=== PATIENT | female | born 2000 | race Caucasian/White ===

== ENCOUNTER 2018-03-28 19:11 | Emergency (ER) | payer BC, MEDICAID ==
[2018-03-28] MEDS ORDERED: Albuterol/Ipratropium 3.0-0.5 MG/3 ML Neb Soln NEB ONE (19:17)
--- NOTE | 2018-03-28 19:21 | EDM.PDOC ---
ED HPI GENERAL MEDICAL PROBLEM - General Stated Complaint: SHORTNESS OF BREATH, CHEST PAIN Time Seen by Provider: 03/28/18 19:11 Source of Information: Reports: Patient History Limitations: Reports: No Limitations - History of Present Illness INITIAL COMMENTS - FREE TEXT/NARRATIVE: HISTORY AND PHYSICAL: History of present illness: Patient is a 17-year-old female who presents to the emergency room with complaints of shortness of breath, cough and chest pain. She reports she has had a dry nonproductive cough over the past week. In the past 24 hours she has developed shortness of breath and chest pain which is increased when she takes in deep breathing or coughing. She is a daily pack per day smoker, 3 year history. Reports she has a history of IBS, Crohns disease, and ulcerative colitis. Denies any fever, chills, abdominal pain, nausea, vomiting, diarrhea or constipation. Review of systems: As per history of present illness and below otherwise all systems reviewed and negative. Past medical history: As per history of present illness and as reviewed below otherwise noncontributory. Surgical history: As per history of present illness and as reviewed below otherwise noncontributory. Social history: No reported history of drug or alcohol abuse. Family history: As per history of present illness and as reviewed below otherwise noncontributory. Physical exam: General: Malnourished appearing 17-year-old female. Alert and oriented. Nontoxic appearing and in no acute distress. HEENT: Atraumatic, normocephalic, pupils equal and reactive bilaterally, negative for conjunctival pallor or scleral icterus, mucous membranes moist, throat clear, neck supple, nontender, trachea midline. No drooling or trismus noted. No meningeal signs Lungs: Clear to auscultation, breath sounds equal bilaterally, chest nontender. Heart: S1S2, regular rate and rhythm without overt murmur Abdomen: Soft, nondistended- sunken, nontender. Negative for masses or hepatosplenomegaly. Negative for costovertebral tenderness. Pelvis: Stable nontender. Genitourinary: Deferred. Rectal: Deferred. Skin: Intact, warm, dry. No lesions or rashes noted. Extremities: Atraumatic, negative for cords or calf pain. Neurovascular unremarkable. Neuro: Awake, alert, oriented. Cranial nerves II through XII unremarkable. Cerebellum unremarkable. Motor and sensory unremarkable throughout. Exam nonfocal. Notes: Besides appearing greatly malnourished, her physical examination is within normal limits. Her labs reveal a Potassium of 2.8 and Sodium 134. There are no previous labs available to me, to compare with. Patient states she is aware of her low electrolyte level and states this is "normal". She does see a inspecting and testing lead hand in [facility] and her primary care provider Dr. Phelan at [facility]. She is due to see Dr. Phelan on 04/05/2018 and her inspecting and testing lead hand in June. And that her electrolytes were low, she does not seem concerned as she is aware that her electrolytes are routinely low due to her history of GI problems. She is agreeable to receiving IV fluids and oral potassium. She states that she will inform her primary care provider of her visit today and care her labs with him. Since she is a smoker and in no suppression therapy will give her a Z-George and Ventolin inhaler for her bronchitis. Diagnostics: CBC, CMP, Chest Xray, EKG Therapeutics: Duo Neb, potassium, IV fluid Impression: Bronchitis Hypokalemia Malnourished Plan: 1. Increase foods that are high in potassium. Inform Dr Chaudhari of your low potassium level and discuss best way to correct this. 2. Stop Smoking. 3. Take your medications as prescribed. 4. Follow up with Dr Chaudhari in the next 1-2 days. Return to the ED as needed and as discussed. Definitive disposition and diagnosis as appropriate pending reevaluation and review of above. Duration: Week(s): chest Pain Score (Numeric/FACES): 7 - Related Data Allergies Allergy/AdvReac Type Severity Reaction Status Date / Time No Known Allergies Allergy Verified 03/28/18 19:30 Home Meds: Home Meds DULoxetine [Cymbalta] 0 mg PO DAILY 03/28/18 [History] Vedolizumab [Entyvio] 0 mg INJECT ASDIRECTED 03/28/18 [History] ED ROS GENERAL - Review of Systems Review Of Systems: ROS reveals no pertinent complaints other than HPI. ED EXAM, GENERAL - Physical Exam Exam: See Below (See dictation) Course - Vital Signs Last Recorded V/S: Last Vital Signs Temp 98.1 F 03/28/18 19:11 Pulse 114 H 03/28/18 19:11 Resp 20 03/28/18 19:11 BP 96/63 03/28/18 19:11 Pulse Ox 98 03/28/18 19:11 - Orders/Labs/Meds Orders: Active Orders 24 hr Category Date Time Status EKG 12 Lead [EKG Documentation Completion] [RC] STAT Care 03/28/18 19:16 Active RT Aerosol Therapy [RC] ASDIRECTED Care 03/28/18 19:18 Active Chest 2V [CR] Stat Exams 03/28/18 19:17 Taken Sodium Chloride 0.9% [Normal Saline] 1,000 ml Med 03/28/18 20:29 Ordered IV STAT Medication Orders Sodium Chloride (Normal Saline) 1,000 mls @ 999 mls/hr IV STAT ONE Stop: 03/28/18 21:29 Last Admin: 03/28/18 20:49 Dose: 999 mls/hr Labs: Laboratory Tests 03/28/18 03/28/18 Range/Units 19:26 19:26 WBC 10.55 (4.0-11.0) K/uL RBC 4.64 (4.30-5.90) M/uL Hgb 11.5 L (12.0-16.0) g/dL Hct 36.4 (36.0-46.0) % MCV 78.4 L (80.0-98.0) fL MCH 24.8 L (27.0-32.0) pg MCHC 31.6 (31.0-37.0) g/dL RDW Std Deviation 48.0 (28.0-62.0) fl RDW Coeff of Alicia 17 H (11.0-15.0) % Plt Count 469 H (150-400) K/uL MPV 9.00 (7.40-12.00) fL Neut % (Auto) 59.1 (48.0-80.0) % Lymph % (Auto) 30.5 (16.0-40.0) % [place] % (Auto) 9.0 (0.0-15.0) % Eos % (Auto) 1.0 (0.0-7.0) % Baso % (Auto) 0.4 (0.0-1.5) % Neut # (Auto) 6.2 H (1.4-5.7) K/uL Lymph # (Auto) 3.2 H (0.6-2.4) K/uL [place] # (Auto) 1.0 H (0.0-0.8) K/uL Eos # (Auto) 0.1 (0.0-0.7) K/uL Baso # (Auto) 0.0 (0.0-0.1) K/uL Nucleated RBC % 0.0 /100WBC Nucleated RBCs # 0 K/uL Sodium 134 L (136-145) mmol/L Potassium 2.8 L (3.5-5.1) mmol/L Chloride 99 (98-107) mmol/L Carbon Dioxide 29.1 (21.0-32.0) mmol/L BUN 6 L (7.0-18.0) mg/dL Creatinine 0.7 (0.6-1.0) mg/dL Est Cr Clr Drug Dosing TNP Estimated GFR (MDRD) > 60.0 ml/min Glucose 99 (74-106) mg/dL Calcium 7.2 L (8.5-10.1) mg/dL Total Bilirubin 0.1 L (0.2-1.0) mg/dL AST 11 L (15-37) IU/L ALT 9 L (14-63) IU/L Alkaline Phosphatase 135 H (46-116) U/L Total Protein 4.8 L (6.4-8.2) g/dL Albumin 1.2 L (3.4-5.0) g/dL Globulin 3.6 H (2.0-3.5) g/dL Albumin/Globulin Ratio 0.3 L (1.3-2.8) Meds: Medications Generic Name Dose Route Start Last Admin Trade Name Freq PRN Reason Stop Dose Admin Sodium Chloride 1,000 mls @ 999 mls/hr 03/28/18 20:29 03/28/18 20:49 Normal Saline IV 03/28/18 21:29 999 mls/hr STAT ONE Administration Discontinued Medications Generic Name Dose Route Start Last Admin Trade Name Freq PRN Reason Stop Dose Admin Albuterol/Ipratropium 3 ml 03/28/18 19:17 03/28/18 19:27 Duoneb 3.0-0.5 Mg/3 Ml NEB 03/28/18 19:18 3 ml ONETIME ONE Administration Ketorolac Tromethamine 30 mg 03/28/18 20:32 03/28/18 20:49 Toradol IVPUSH 03/28/18 20:33 30 mg ONETIME ONE Administration Potassium Chloride 20 meq 03/28/18 20:29 03/28/18 20:49 Klor-Con M20 PO 03/28/18 20:30 20 meq ONETIME ONE Administration Departure - Departure Time of Disposition: 20:52 Disposition: Home, Self-Care 01 Clinical Impression: Bronchitis, Hypokalemia Malnourished Qualifiers: Malnutrition type: unspecified type Qualified Code(s): E46 - Unspecified protein-calorie malnutrition - Discharge Information Instructions: Hypokalemia, Acute Bronchitis, Adult, [id number] Referrals: Albert Phelan MD [Primary Care Provider] - Additional Instructions: The following information is given to patients seen in the emergency department who are being discharged to home. This information is to outline your options for follow-up care. We provide all patients seen in our emergency department with a follow-up referral. The need for follow-up, as well as the timing and circumstances, are variable depending upon the specifics of your emergency department visit. If you don't have a primary care physician on staff, we will provide you with a referral. We always advise you to contact your personal physician following an emergency department visit to inform them of the circumstance of the visit and for follow-up with them and/or the need for any referrals to a consulting specialist. The emergency department will also refer you to a specialist when appropriate. This referral assures that you have the opportunity for follow-up care with a specialist. All of these measure are taken in an effort to provide you with optimal care, which includes your follow-up. Under all circumstances we always encourage you to contact your private physician who remains a resource for coordinating your care. When calling for follow-up care, please make the office aware that this follow-up is from your recent emergency room visit. If for any reason you are refused follow-up, please contact the [facility] Emergency Department at and asked to speak to the emergency department charge nurse. [facility] [address] [place] [id number] 1. Increase foods that are high in potassium. Inform Dr Chaudhari of your low potassium level and discuss best way to correct this. 2. Stop Smoking. 3. Take your medications as prescribed. 4. Follow up with Dr Chaudhari in the next 1-2 days. Return to the ED as needed and as discussed. - My Orders Last 24 Hours: My Active Orders 03/28/18 19:16 EKG 12 Lead [EKG Documentation Completion] [RC] STAT 03/28/18 19:17 Chest 2V [CR] Stat 03/28/18 19:18 RT Aerosol Therapy [RC] ASDIRECTED 03/28/18 20:29 Sodium Chloride 0.9% [Normal Saline] 1,000 ml IV STAT - Assessment/Plan Last 24 Hours: My Active Orders 03/28/18 19:16 EKG 12 Lead [EKG Documentation Completion] [RC] STAT 03/28/18 19:17 Chest 2V [CR] Stat 03/28/18 19:18 RT Aerosol Therapy [RC] ASDIRECTED 03/28/18 20:29 Sodium Chloride 0.9% [Normal Saline] 1,000 ml IV STAT
[2018-03-28 20:01] LABS: CHLORIDE,CL 99 mmol/L (98-107); SODIUM,NA 134 mmol/L (136-145)
[2018-03-28] MEDS ORDERED: Sodium Chloride 0.9% 1,000 ML IV ONE (20:29)
[2018-03-28] MEDS ORDERED: Potassium Chloride 20 MEQ Tab.ER PO ONE (20:29)
[2018-03-28] MEDS ORDERED: Ketorolac 30 MG/ML SDV IVPUSH ONE (20:32)
--- NOTE | 2018-03-29 15:23 | CR ---
EXAM DATE: 03/28/18 PATIENT'S AGE: 17 Patient: ALLYSON SOLANO Facility: [place], [place] Site . Site : 2000 Study: XRay Chest [id number]/11/2018 7:49:22 PM Ordering Physician: Doctor Polo Final Report: INDICATION: Chest pain, shortness of breath. TECHNIQUE: Chest radiograph 2 views COMPARISON: None FINDINGS: Cardiovascular and mediastinum: The heart silhouette is normal in size and morphology. The mediastinum is normal in appearance. Lungs and pleural spaces: Both lungs are unremarkable in appearance. No sign of pleural effusion seen. No pneumothorax is identified. Bones and soft tissues: No significant findings. Cholecystectomy surgical clips are noted in the right upper abdomen. IMPRESSION: 1. No acute cardiopulmonary disease is seen. Dictated by Anil Salvador MD @ 03/28/2018 7:55:54 PM Dictated by: Anil Salvador MD @ 03/28/2018 19:56:04 (Electronic Signature) Report Signed by Proxy. KANWAL
== END 2018-03-28 21:47 | disposition home or self-care (01) ==
LOC: MW.ED 19:11
DX: J40 Bronchitis, not specified as acute or chronic (principal); E87.6 Hypokalemia; E46 Unspecified protein-calorie malnutrition; F17.210 Nicotine dependence, cigarettes, uncomplicated; Z71.6 Tobacco abuse counseling
CPT/HCPCS: 36415; 71046; 80053; 85025; 93005; 94640; 96361; 96374; 99285; A9270; J1885; J7040; 99284

== ENCOUNTER 2018-05-02 23:22 | Emergency (ER) | payer MEDICAID ==
--- NOTE | 2018-05-02 23:39 | EDM.PDOC ---
ED HPI GENERAL MEDICAL PROBLEM - General Chief Complaint: Lower Extremity Injury/Pain Stated Complaint: LF FOOT IS SWOLLEN Time Seen by Provider: 05/02/18 23:39 Source of Information: Reports: Patient - History of Present Illness INITIAL COMMENTS - FREE TEXT/NARRATIVE: HISTORY AND PHYSICAL: History of present illness: [Female presents with left foot swelling and pain, followed by her primary care MRI has been performed through our facility if for infection fracture or any acute process the edema is noted She has ultrasound scheduled to follow-up elevated liver function is a history of Crohn's disease and has not been keeping food down she is quite thin and I suspect her pedal edema may be due to protein deficiency and liver disease which is followed by her primary care Will check for gout otherwise all I can offer his pain control from the ER ] Review of systems: As per history of present illness and below otherwise all systems reviewed and negative. Past medical history: As per history of present illness and as reviewed below otherwise noncontributory. Surgical history: As per history of present illness and as reviewed below otherwise noncontributory. Social history: No reported history of drug or alcohol abuse. Family history: As per history of present illness and as reviewed below otherwise noncontributory. Physical exam: HEENT: Atraumatic, normocephalic, pupils reactive, negative for conjunctival pallor or scleral icterus, mucous membranes moist, throat clear, neck supple, nontender, trachea midline. Lungs: Clear to auscultation, breath sounds equal bilaterally, chest nontender. Heart: S1S2, regular, negative for clicks, rubs, or JVD. Abdomen: Soft, nondistended, nontender. Negative for masses or hepatosplenomegaly. Negative for costovertebral tenderness. Pelvis: Stable nontender. Genitourinary: Deferred. Rectal: Deferred. Extremities: Atraumatic, negative for cords or calf pain. Neurovascular unremarkable. Neuro: Awake, alert, oriented. Cranial nerves II through XII unremarkable. Cerebellum unremarkable. Motor and sensory unremarkable throughout. Exam nonfocal. Diagnostics: [cBC uric acid ] MRI on file within the last couple of weeks Therapeutics: [MS Contin 15 mg by mouth every 8 #20 no refill one by mouth now With history of elevated liver function in Crohn's we will have patient follow with primary care Dr. Phelan for continued management and workup ] Impression: [Left foot pain and edema] Elevated liver function by history chronic history of baseline Definitive disposition and diagnosis as appropriate pending reevaluation and review of above. L foot Pain Score (Numeric/FACES): 9 - Related Data Allergies Allergy/AdvReac Type Severity Reaction Status Date / Time No Known Allergies Allergy Verified 05/02/18 23:34 Home Meds: Home Meds DULoxetine [Cymbalta] 30 mg PO DAILY 03/28/18 [History] Vedolizumab [Entyvio] 0 mg INJECT ASDIRECTED 03/28/18 [History] Past Medical History Gastrointestinal History: Reports: Other (See Below) Other Gastrointestinal History: crohn's ds Psychiatric History: Reports: Anxiety, Depression Social & Family History - Family History Family Medical History: Noncontributory Review of Systems - Review of Systems Review Of Systems: See Below ED EXAM, GENERAL - Physical Exam Exam: See Below Course - Vital Signs Last Recorded V/S: Last Vital Signs Temp 97.9 F 05/02/18 23:31 Pulse 99 05/02/18 23:31 Resp 12 05/02/18 23:31 BP 101/68 05/02/18 23:31 Pulse Ox 97 05/02/18 23:31 - Orders/Labs/Meds Labs: Laboratory Tests 05/02/18 05/02/18 Range/Units 23:48 23:48 WBC 8.60 (4.0-11.0) K/uL RBC 4.46 (4.30-5.90) M/uL Hgb 11.3 L (12.0-16.0) g/dL Hct 35.6 L (36.0-46.0) % MCV 79.8 L (80.0-98.0) fL MCH 25.3 L (27.0-32.0) pg MCHC 31.7 (31.0-37.0) g/dL RDW Std Deviation 54.3 (28.0-62.0) fl RDW Coeff of Alicia 19 H (11.0-15.0) % Plt Count 416 H (150-400) K/uL MPV 8.70 (7.40-12.00) fL Neut % (Auto) 52.8 (48.0-80.0) % Lymph % (Auto) 38.6 (16.0-40.0) % [place] % (Auto) 6.9 (0.0-15.0) % Eos % (Auto) 0.8 (0.0-7.0) % Baso % (Auto) 0.9 (0.0-1.5) % Neut # (Auto) 4.5 (1.4-5.7) K/uL Lymph # (Auto) 3.3 H (0.6-2.4) K/uL [place] # (Auto) 0.6 (0.0-0.8) K/uL Eos # (Auto) 0.1 (0.0-0.7) K/uL Baso # (Auto) 0.1 (0.0-0.1) K/uL Nucleated RBC % 0.0 /100WBC Nucleated RBCs # 0 K/uL Uric Acid 2.5 L (2.6-7.2) mg/dL Meds: Medications Discontinued Medications Generic Name Dose Route Start Last Admin Trade Name Freq PRN Reason Stop Dose Admin Morphine Sulfate 15 mg 05/02/18 23:53 05/03/18 00:02 Ms Contin PO 05/02/18 23:54 15 mg ONETIME ONE Administration Departure - Departure Time of Disposition: 00:36 Disposition: Home, Self-Care 01 Condition: Good Clinical Impression: Pedal edema - Discharge Information Referrals: Albert Phelan MD [Primary Care Provider] - Forms: ED Department Discharge Additional Instructions: The following information is given to patients seen in the emergency department who are being discharged to home. This information is to outline your options for follow-up care. We provide all patients seen in our emergency department with a follow-up referral. The need for follow-up, as well as the timing and circumstances, are variable depending upon the specifics of your emergency department visit. If you don't have a primary care physician on staff, we will provide you with a referral. We always advise you to contact your personal physician following an emergency department visit to inform them of the circumstance of the visit and for follow-up with them and/or the need for any referrals to a consulting specialist. The emergency department will also refer you to a specialist when appropriate. This referral assures that you have the opportunity for follow-up care with a specialist. All of these measure are taken in an effort to provide you with optimal care, which includes your follow-up. Under all circumstances we always encourage you to contact your private physician who remains a resource for coordinating your care. When calling for follow-up care, please make the office aware that this follow-up is from your recent emergency room visit. If for any reason you are refused follow-up, please contact the [facility] emergency department at and asked to speak to the emergency department charge nurse.
[2018-05-03] MEDS: Morphine 15 MG Tab.ER PO ONE (00:02)
== END 2018-05-03 00:49 | disposition home or self-care (01) ==
LOC: MW.ED 23:22
DX: R60.0 Localized edema (principal); M79.672 Pain in left foot; R79.89 Other specified abnormal findings of blood chemistry
CPT/HCPCS: 36415; 84550; 85025; 99283; A9270-GY

== ENCOUNTER 2018-05-30 16:02 | Observation (INO) | payer MEDICAID ==
[2018-05-30] MEDS ORDERED: Sodium Chloride 0.9% 2.5 ML Syringe FLUSH PRN (16:04)
[2018-05-30] MEDS ORDERED: Sodium Chloride 0.9% 10 ML Syringe FLUSH PRN (16:04)
[2018-05-30] MEDS ORDERED: Sodium Chloride 0.9% 1,000 ML IV ONE (16:12)
--- NOTE | 2018-05-30 16:12 | EDM.PDOC ---
ED HPI GENERAL MEDICAL PROBLEM - General Chief Complaint: Neuro Symptoms/Deficits Stated Complaint: PT HAS NUMBNESS Time Seen by Provider: 05/30/18 16:03 Source of Information: Reports: Patient History Limitations: Reports: No Limitations - History of Present Illness INITIAL COMMENTS - FREE TEXT/NARRATIVE: History of present illness: []Patient has history of Crohn's disease has been on several medicines by Dr. Phelan that are no longer working. Patient weighed 238 pounds ear half ago and now weighs 80 pounds. Today she started having tingling all over her body and so weak she could not get up. He drinks fluids and keep some down a lot but she has trouble eating. She denies any fevers, chills or abdominal pain. Review of systems: As per history of present illness and below otherwise all systems reviewed and negative. Past medical history: As per history of present illness and as reviewed below otherwise noncontributory. Surgical history: As per history of present illness and as reviewed below otherwise noncontributory. Social history: No reported history of drug or alcohol abuse. Family history: As per history of present illness and as reviewed below otherwise noncontributory. Physical exam: General: Well developed, well nourished in NAD HEENT: Atraumatic, normocephalic, pupils reactive, negative for conjunctival pallor or scleral icterus, mucous membranes moist, throat clear, neck supple, nontender, trachea midline. Lungs: Clear to auscultation, breath sounds equal bilaterally, chest nontender. Heart: S1S2, regular, negative for clicks, rubs, or JVD. Abdomen: Soft, nondistended, nontender. Negative for masses or hepatosplenomegaly. Negative for costovertebral tenderness. Pelvis: Stable nontender. Genitourinary: Deferred. Rectal: Deferred. Extremities: Atraumatic, negative for cords or calf pain. Neurovascular unremarkable. Neuro: Awake, alert, oriented. Cranial nerves II through XII unremarkable. Cerebellum unremarkable. Motor and sensory unremarkable throughout. Exam nonfocal. Skin:warm and dry Diagnostics: CBC, chemistry, UA, , magnesium, phosphorus Therapeutics: IV fluids, Zofran, banana bag with potassium ED Course: Unremarkable Impression: Failure to thrive, dehydration Prescriptions: Plan: Admit for correction of electrolytes and IV hydration. Definitive disposition and diagnosis as appropriate pending reevaluation and review of above. - Related Data Allergies Allergy/AdvReac Type Severity Reaction Status Date / Time No Known Allergies Allergy Verified 05/30/18 16:05 Home Meds: Home Meds Vedolizumab [Entyvio] 300 mg INJECT ASDIRECTED 03/28/18 [History] Morphine 15 mg PO TID 05/30/18 [History] Past Medical History Gastrointestinal History: Reports: Other (See Below) Other Gastrointestinal History: crohn's ds Psychiatric History: Reports: Anxiety, Depression - Infectious Disease History Infectious Disease History: Reports: Chicken Pox - Past Surgical History GI Surgical History: Reports: Cholecystectomy Social & Family History - Family History Family Medical History: Noncontributory - Caffeine Use Caffeine Use: Reports: Soda ED ROS GENERAL - Review of Systems Review Of Systems: ROS reveals no pertinent complaints other than HPI. ED EXAM, GENERAL - Physical Exam Exam: See Below (See history of present illness) Course - Vital Signs Last Recorded V/S: Last Vital Signs Temp 96.8 F 05/30/18 16:08 Pulse 101 H 05/30/18 16:08 Resp 22 H 05/30/18 16:08 BP 112/54 L 05/30/18 16:08 Pulse Ox 100 05/30/18 16:08 - Orders/Labs/Meds Orders: Active Orders 24 hr Category Date Time Status EKG Documentation Completion [RC] STAT Care 05/30/18 16:13 Active HCG QUALITATIVE,URINE [URCHEM] Stat Lab 05/30/18 16:55 Ordered UA W/MICROSCOPIC [URIN] Stat Lab 05/30/18 16:13 Ordered MVI, Adult with Vitamin K [Infuvite Adult] 10 ml Med 05/30/18 16:53 Active Thiamine [Vitamin B-1] 100 mg Folic Acid 1 mg Potassium Chloride 40 meq Sodium Chloride 0.9% [Normal Saline] 1,000 ml IV ONETIME Sodium Chloride 0.9% [Saline Flush] Med 05/30/18 16:04 Active 10 ml FLUSH ASDIRECTED PRN Sodium Chloride 0.9% [Saline Flush] Med 05/30/18 16:04 Active 2.5 ml FLUSH ASDIRECTED PRN Saline Lock Insert [OM.PC] Stat Oth 05/30/18 16:03 Ordered Medication Orders Multivitamins/Minerals 10 ml/Thiamine HCl 100 mg/ Folic Acid 1 mg/ Potassium Chloride 40 meq/ Sodium Chloride 1,031.2 mls @ 250 mls/hr IV ONETIME ONE Stop: 05/30/18 21:00 Sodium Chloride (Saline Flush) 10 ml FLUSH ASDIRECTED PRN PRN Reason: Keep Vein Open Last Admin: 05/30/18 16:32 Dose: 10 ml Sodium Chloride (Saline Flush) 2.5 ml FLUSH ASDIRECTED PRN PRN Reason: Keep Vein Open Last Admin: 05/30/18 16:32 Dose: 2.5 ml Labs: Laboratory Tests 05/30/18 05/30/18 Range/Units 16:12 16:12 WBC 6.23 (4.0-11.0) K/uL RBC 4.93 (4.30-5.90) M/uL Hgb 12.8 (12.0-16.0) g/dL Hct 38.0 (36.0-46.0) % MCV 77.1 L (80.0-98.0) fL MCH 26.0 L (27.0-32.0) pg MCHC 33.7 (31.0-37.0) g/dL RDW Std Deviation 51.0 (28.0-62.0) fl RDW Coeff of Alicia 18 H (11.0-15.0) % Plt Count 305 (150-400) K/uL MPV 9.90 (7.40-12.00) fL Neut % (Auto) 55.9 (48.0-80.0) % Lymph % (Auto) 36.4 (16.0-40.0) % [place] % (Auto) 6.9 (0.0-15.0) % Eos % (Auto) 0.3 (0.0-7.0) % Baso % (Auto) 0.5 (0.0-1.5) % Neut # (Auto) 3.5 (1.4-5.7) K/uL Lymph # (Auto) 2.3 (0.6-2.4) K/uL [place] # (Auto) 0.4 (0.0-0.8) K/uL Eos # (Auto) 0.0 (0.0-0.7) K/uL Baso # (Auto) 0.0 (0.0-0.1) K/uL Nucleated RBC % 0.0 /100WBC Nucleated RBCs # 0 K/uL Sodium 130 L (136-145) mmol/L Potassium 2.8 L (3.5-5.1) mmol/L Chloride 97 L (98-107) mmol/L Carbon Dioxide 27.2 (21.0-32.0) mmol/L BUN 3 L (7.0-18.0) mg/dL Creatinine 0.5 L (0.6-1.0) mg/dL Est Cr Clr Drug Dosing TNP Estimated GFR (MDRD) > 60.0 ml/min Glucose 85 (74-106) mg/dL Calcium 6.7 L (8.5-10.1) mg/dL Phosphorus 2.0 L (2.6-4.7) mg/dL Magnesium 1.6 L (1.8-2.4) mg/dL Total Bilirubin 0.3 (0.2-1.0) mg/dL AST 26 (15-37) IU/L ALT 31 (14-63) IU/L Alkaline Phosphatase 112 (46-116) U/L Total Protein 3.3 L (6.4-8.2) g/dL Albumin 0.7 L (3.4-5.0) g/dL Globulin 2.6 (2.0-3.5) g/dL Albumin/Globulin Ratio 0.3 L (1.3-2.8) Meds: Medications Generic Name Dose Route Start Last Admin Trade Name Freq PRN Reason Stop Dose Admin Multivitamins/Minerals 10 ml/ 1,031.2 mls @ 250 mls/hr 05/30/18 16:53 Thiamine HCl 100 mg/ Folic IV 05/30/18 21:00 Acid 1 mg/ Potassium Chloride ONETIME ONE 40 meq/ Sodium Chloride Sodium Chloride 10 ml 05/30/18 16:04 05/30/18 16:32 Saline Flush FLUSH 10 ml ASDIRECTED PRN Administration Keep Vein Open Sodium Chloride 2.5 ml 05/30/18 16:04 05/30/18 16:32 Saline Flush FLUSH 2.5 ml ASDIRECTED PRN Administration Keep Vein Open Discontinued Medications Generic Name Dose Route Start Last Admin Trade Name Freq PRN Reason Stop Dose Admin Sodium Chloride 1,000 mls @ 999 mls/hr 05/30/18 16:12 05/30/18 16:32 Normal Saline IV 05/30/18 17:12 999 mls/hr .Bolus ONE Administration Ondansetron HCl 4 mg 05/30/18 16:53 Zofran IVPUSH 05/30/18 16:54 ONETIME ONE Departure - Departure Time of Disposition: 17:17 Disposition: Admitted As Inpatient 64 Condition: Poor Clinical Impression: Failure to thrive Qualifiers: Failure to thrive age range: in adult Qualified Code(s): R62.7 - Adult failure to thrive - Discharge Information *PRESCRIPTION DRUG MONITORING PROGRAM REVIEWED*: No *COPY OF PRESCRIPTION DRUG MONITORING REPORT IN PATIENT RUPAL: No Forms: ED Department Discharge - My Orders Last 24 Hours: My Active Orders 05/30/18 16:03 Saline Lock Insert [OM.PC] Stat 05/30/18 16:04 Sodium Chloride 0.9% [Saline Flush] 10 ml FLUSH ASDIRECTED PRN Sodium Chloride 0.9% [Saline Flush] 2.5 ml FLUSH ASDIRECTED PRN 05/30/18 16:13 EKG Documentation Completion [RC] STAT UA W/MICROSCOPIC [URIN] Stat 05/30/18 16:53 MVI, Adult with Vitamin K [Infuvite Adult] 10 ml Thiamine [Vitamin B-1] 100 mg Folic Acid 1 mg Potassium Chloride 40 meq Sodium Chloride 0.9% [Normal Saline ] 1,000 ml IV ONETIME 05/30/18 16:55 HCG QUALITATIVE,URINE [URCHEM] Stat - Assessment/Plan Last 24 Hours: My Active Orders 05/30/18 16:03 Saline Lock Insert [OM.PC] Stat 05/30/18 16:04 Sodium Chloride 0.9% [Saline Flush] 10 ml FLUSH ASDIRECTED PRN Sodium Chloride 0.9% [Saline Flush] 2.5 ml FLUSH ASDIRECTED PRN 05/30/18 16:13 EKG Documentation Completion [RC] STAT UA W/MICROSCOPIC [URIN] Stat 05/30/18 16:53 MVI, Adult with Vitamin K [Infuvite Adult] 10 ml Thiamine [Vitamin B-1] 100 mg Folic Acid 1 mg Potassium Chloride 40 meq Sodium Chloride 0.9% [Normal Saline ] 1,000 ml IV ONETIME 05/30/18 16:55 HCG QUALITATIVE,URINE [URCHEM] Stat
[2018-05-30 16:48] LABS: CHLORIDE,CL 97 mmol/L (98-107); SODIUM,NA 130 mmol/L (136-145)
[2018-05-30] MEDS ORDERED: MVI, Adult with Vitamin K 10 ML, Thiamine 100 MG, Folic Acid 1 MG, Potassium Chloride 4... IV ONE ×5 (16:53)
[2018-05-30] MEDS ORDERED: Ondansetron 4 MG/2 ML SDV IVPUSH ONE (16:53)
[2018-05-30] MEDS: Enoxaparin 40 MG/0.4 ML Syringe SUBCUT SCH (17:55)
--- NOTE | 2018-05-30 18:01 | PCM.HP ---
H&P History of Present Illness - General Date of Service: 05/30/18 Admit Problem/Dx: Admission Diagnosis/Problem Admission Diagnosis/Problem Failure to thrive - History of Present Illness Initial Comments - Free Text/Narative: The patient is a 18-year-old female with past medical history of Crohn's disease who presented to the ER today with difficulty breathing and her whole body feeling numb. This started around 11:00 this morning. When I saw her in the ER, she said she was more relaxed and she was no longer having that numb feeling. She thinks when she moves it comes back. She also reports retaining fluids for the past month. She saw her PCP, Dr. Phelan last week who did an ultrasound of her heart and found fluid around her heart and scheduled her for an outpatient echo. She also follows with a Dr. Gaitan in [place] for her Crohn's disease. She supposed to get an injection of Entyvio every 8 weeks, but she missed her May injection beacuse she wasn't feeling well. She also reports that she's lost about 160 pounds in the last year and a half. Today, she endorses diarrhea but states that is her baseline. She has not had a very good appetite but denies any nausea, vomiting or abdominal pain. She denies any major changes in her life, stress, changes in diet or activity. in the ER, they did basic lab work, CBC, CMP, mag, phos and UA. They gave her a bolus of normal saline and a banana bag with 40 mEq of potassium. They also got an EKG that shows sinus rhythm with low voltage - Related Data Allergies/Adverse Reactions: Allergies Allergy/AdvReac Type Severity Reaction Status Date / Time No Known Allergies Allergy Verified 05/30/18 16:05 Home Medications: Home Meds Vedolizumab [Entyvio] 300 mg INJECT ASDIRECTED 03/28/18 [History] Morphine 15 mg PO TID 05/30/18 [History] Past Medical History HEENT History: Reports: None Cardiovascular History: Reports: None Respiratory History: Reports: None Gastrointestinal History: Reports: Other (See Below) Other Gastrointestinal History: crohn's ds Genitourinary History: Reports: None STONEWORKER History: Reports: None Musculoskeletal History: Reports: None Neurological History: Reports: None Psychiatric History: Reports: Anxiety, Depression Endocrine/Metabolic History: Reports: None Oncologic (Cancer) History: Reports: None Dermatologic History: Reports: None - Infectious Disease History Infectious Disease History: Reports: Chicken Pox - Past Surgical History GI Surgical History: Reports: Cholecystectomy Social & Family History - Family History Family Medical History: Noncontributory - Tobacco Use Smoking Status *Q: Current Every Day Smoker (1/2 pack day) - Caffeine Use Caffeine Use: Reports: Soda - Alcohol Use Alcohol Use History: No - Recreational Drug Use Recreational Drug Use: No H&P Review of Systems - Review of Systems: Review Of Systems: See Below General: Reports: Weakness, Fatigue, Weight Loss. Denies: Fever, Chills HEENT: Reports: No Symptoms Pulmonary: Reports: Shortness of Breath Cardiovascular: Reports: No Symptoms Gastrointestinal: Reports: Diarrhea, Decreased Appetite. Denies: Abdominal Pain , Black Stool, Bloody Stool, Constipation, Nausea, Vomiting Genitourinary: Reports: No Symptoms Musculoskeletal: Reports: No Symptoms Skin: Reports: No Symptoms Psychiatric: Reports: No Symptoms Neurological: Reports: Paresthesia Hematologic/Lymphatic: Reports: No Symptoms Immunologic: Reports: No Symptoms Exam - Exam Exam: See Below - Vital Signs Vital Signs: Last Vital Signs Temp 96.8 F 05/30/18 16:08 Pulse 84 05/30/18 17:20 Resp 16 05/30/18 17:20 BP 98/64 05/30/18 17:20 Pulse Ox 100 05/30/18 17:20 Weight: 45.359 kg - Exam General: Alert, Oriented, Cooperative, Other (very thin) HEENT: Conjunctiva Clear, EOMI, Mucosa Moist & [place], Posterior Pharynx Clear, Pupils Equal, Pupils Reactive, Other (edema eyelinds bilateral) Neck: Supple Lungs: Clear to Auscultation, Normal Respiratory Effort Cardiovascular: Regular Rate, Regular Rhythm GI/Abdominal Exam: Normal Bowel Sounds, Soft, Non-Tender, No Distention Extremities: Pedal Edema (+2 up to knees bilaterally) Skin: Warm, Dry, Intact Neurological: Cranial Nerves Intact Neuro Extensive - Mental Status: Alert, Oriented x3 Psychiatric: Alert, Normal Affect, Normal Mood - Patient Data Lab Results Last 24 hrs: Laboratory Results - last 24 hr 05/30/18 05/30/18 Range/Units 16:12 16:12 WBC 6.23 (4.0-11.0) K/uL RBC 4.93 (4.30-5.90) M/uL Hgb 12.8 (12.0-16.0) g/dL Hct 38.0 (36.0-46.0) % MCV 77.1 L (80.0-98.0) fL MCH 26.0 L (27.0-32.0) pg MCHC 33.7 (31.0-37.0) g/dL RDW Std Deviation 51.0 (28.0-62.0) fl RDW Coeff of Alicia 18 H (11.0-15.0) % Plt Count 305 (150-400) K/uL MPV 9.90 (7.40-12.00) fL Neut % (Auto) 55.9 (48.0-80.0) % Lymph % (Auto) 36.4 (16.0-40.0) % [place] % (Auto) 6.9 (0.0-15.0) % Eos % (Auto) 0.3 (0.0-7.0) % Baso % (Auto) 0.5 (0.0-1.5) % Neut # (Auto) 3.5 (1.4-5.7) K/uL Lymph # (Auto) 2.3 (0.6-2.4) K/uL [place] # (Auto) 0.4 (0.0-0.8) K/uL Eos # (Auto) 0.0 (0.0-0.7) K/uL Baso # (Auto) 0.0 (0.0-0.1) K/uL Nucleated RBC % 0.0 /100WBC Nucleated RBCs # 0 K/uL Sodium 130 L (136-145) mmol/L Potassium 2.8 L (3.5-5.1) mmol/L Chloride 97 L (98-107) mmol/L Carbon Dioxide 27.2 (21.0-32.0) mmol/L BUN 3 L (7.0-18.0) mg/dL Creatinine 0.5 L (0.6-1.0) mg/dL Est Cr Clr Drug Dosing TNP Estimated GFR (MDRD) > 60.0 ml/min Glucose 85 (74-106) mg/dL Calcium 6.7 L (8.5-10.1) mg/dL Phosphorus 2.0 L (2.6-4.7) mg/dL Magnesium 1.6 L (1.8-2.4) mg/dL Total Bilirubin 0.3 (0.2-1.0) mg/dL AST 26 (15-37) IU/L ALT 31 (14-63) IU/L Alkaline Phosphatase 112 (46-116) U/L Total Protein 3.3 L (6.4-8.2) g/dL Albumin 0.7 L (3.4-5.0) g/dL Globulin 2.6 (2.0-3.5) g/dL Albumin/Globulin Ratio 0.3 L (1.3-2.8) Result Diagrams: 05/30/18 16:12 05/30/18 16:12 Problem List Initiated/Reviewed/Updated: Yes Orders Last 24hrs: Active Orders 24 hr Category Date Time Status Patient Status [ADT] Stat ADT 05/30/18 17:19 Active EKG Documentation Completion [RC] STAT Care 05/30/18 16:13 Active Intake and Output Strict [RC] ASDIRECTED Care 05/30/18 17:44 Ordered Vital Signs [RC] PER UNIT ROUTINE Care 05/30/18 17:44 Ordered High Protein Diet [DIET] Diet 05/31/18 Breakfast Ordered Echo Comp wo Cont [US] Stat Exams 05/30/18 17:50 Ordered HCG QUALITATIVE,URINE [URCHEM] Stat Lab 05/30/18 16:55 Ordered MISC TEST Stat Lab 05/30/18 17:41 Ordered TSH [CHEM] Stat Lab 05/30/18 17:41 Ordered UA W/MICROSCOPIC [URIN] Stat Lab 05/30/18 16:13 Ordered VITAMIN B12 [CHEM] Stat Lab 05/30/18 17:41 Ordered Enoxaparin [Lovenox] Med 05/30/18 17:45 Ordered 40 mg SUBCUT Q24H MVI, Adult with Vitamin K [Infuvite Adult] 10 ml Med 05/30/18 16:53 Active Thiamine [Vitamin B-1] 100 mg Folic Acid 1 mg Potassium Chloride 40 meq Sodium Chloride 0.9% [Normal Saline] 1,000 ml IV ONETIME Phosphorus #1 [Neutra-Phos] Med 05/30/18 18:00 Ordered 250 mg PO TID Potassium Chloride [Klor-Con M20] Med 05/30/18 20:00 Ordered 40 meq PO Q4HR Sodium Chloride 0.9% [Saline Flush] Med 05/30/18 16:04 Active 10 ml FLUSH ASDIRECTED PRN Sodium Chloride 0.9% [Saline Flush] Med 05/30/18 16:04 Active 2.5 ml FLUSH ASDIRECTED PRN Saline Lock Insert [OM.PC] Stat Oth 05/30/18 16:03 Ordered Resuscitation Status Stat Resus Stat 05/30/18 17:44 Ordered Medication Orders Enoxaparin Sodium (Lovenox) 40 mg SUBCUT Q24H [facility] Multivitamins/Minerals 10 ml/Thiamine HCl 100 mg/ Folic Acid 1 mg/ Potassium Chloride 40 meq/ Sodium Chloride 1,031.2 mls @ 250 mls/hr IV ONETIME ONE Stop: 05/30/18 21:00 Last Admin: 05/30/18 17:38 Dose: 250 mls/hr Potassium Chloride (Klor-Con M20) 40 meq PO Q4HR WILLIAM Stop: 05/31/18 00:01 Sodium Chloride (Saline Flush) 10 ml FLUSH ASDIRECTED PRN PRN Reason: Keep Vein Open Last Admin: 05/30/18 16:32 Dose: 10 ml Sodium Chloride (Saline Flush) 2.5 ml FLUSH ASDIRECTED PRN PRN Reason: Keep Vein Open Last Admin: 05/30/18 16:32 Dose: 2.5 ml Sodium Phosphate (Neutra-Phos) 250 mg PO TID [facility] Assessment/Plan Comment:: 1. Admit for observation 2. Code- full 3. Vitals per routine 4. Strict I/Os 5. Diet- high protein 6. DVT prophylaxis with Lovenox 7. Failure to thrive- monitor labs, high protein diet, monitor on telemetry 8. Hypokalemia- replace with 40 mEq every 4 hours x 2. 9. Hypomagnesemia- replace with 2 grams IV 10. Hypophosphatemia- replace with neutraphos 2 packs every 8 hours. 11. Paresthesias- will check vitamin b12, TSH, and thiamine level 12. Fluid Retention- will get echo
[2018-05-30] MEDS: Phosphorus #1 250 MG Tab PO SCH ×2 (18:52→22:56)
[2018-05-30] MEDS ORDERED: Albumin 25% 12.5 GM/50 ML BAG IV ONE (19:09)
[2018-05-30] MEDS ORDERED: Potassium Chloride 20 MEQ Tab.ER PO SCH (20:00)
[2018-05-31] MEDS: Potassium Chloride 20 MEQ Tab.ER PO SCH ×2 (02:17→06:20)
[2018-05-31] MEDS: Ondansetron 4 MG/2 ML SDV IVPUSH PRN ×2 (02:17→13:13)
[2018-05-31] MEDS: Acetaminophen 325 MG Tab PO PRN ×2 (02:17→22:05)
[2018-05-31 05:52] LABS: CHLORIDE,CL 102 mmol/L (98-107); SODIUM,NA 134 mmol/L (136-145)
[2018-05-31] MEDS: Phosphorus #1 250 MG Tab PO SCH (06:20)
[2018-05-31] MEDS ORDERED: Magnesium Sulfate/Water 2 GM in Premix Bag 1 BAG IV ONE (07:20)
[2018-05-31] MEDS ORDERED: Potassium Chloride 20 MEQ Tab.ER PO ONE (07:20)
--- NOTE | 2018-05-31 08:40 | PCM.PN ---
- General Info Date of Service: 05/31/18 Subjective Update: The patient is a 18 year-old female with history of Crohn's who was admitted last night for failure to thrive, multiple abnormalities in her electrolytes, and paresthesias which have resolved. She is also retaining fluid. She reports she had a bad night because she couldn't sleep because her legs were bothering her. She hasn't really been eating or drinking much since admission. She has no appetite. I did speak to her GI doctor in [place], Dr. Tillman, who recommended testing, her stool and starting her on IV steroids with a PO taper when she is discharged. She denies any chest pain, shortness of breath. She does have abdominal pain but she states that is at her baseline for her Crohn's disease. - Review of Systems General: Reports: No Symptoms HEENT: Reports: No Symptoms Pulmonary: Reports: No Symptoms Cardiovascular: Reports: No Symptoms Gastrointestinal: Reports: Abdominal Pain, Decreased Appetite, Diarrhea. Denies : Nausea, Vomiting Genitourinary: Reports: No Symptoms Musculoskeletal: Reports: No Symptoms Skin: Reports: No Symptoms Neurological: Reports: No Symptoms Psychiatric: Reports: No Symptoms - Patient Data Vitals - Most Recent: Last Vital Signs Temp 97.1 F 05/31/18 03:00 Pulse 74 05/31/18 03:00 Resp 17 05/31/18 03:00 BP 95/60 05/31/18 03:00 Pulse Ox 96 05/31/18 03:00 Weight - Most Recent: 46.901 kg I&O - Last 24 Hours: Intake & Output 05/30/18 05/31/18 05/31/18 22:59 06:59 14:59 Intake Total 1000 720 Output Total 500 Balance 1000 220 Lab Results Last 24 Hours: Laboratory Results - last 24 hr 05/30/18 05/30/18 05/30/18 Range/Units 16:12 16:12 17:41 WBC 6.23 (4.0-11.0) K/uL RBC 4.93 (4.30-5.90) M/uL Hgb 12.8 (12.0-16.0) g/dL Hct 38.0 (36.0-46.0) % MCV 77.1 L (80.0-98.0) fL MCH 26.0 L (27.0-32.0) pg MCHC 33.7 (31.0-37.0) g/dL RDW Std Deviation 51.0 (28.0-62.0) fl RDW Coeff of Alicia 18 H (11.0-15.0) % Plt Count 305 (150-400) K/uL MPV 9.90 (7.40-12.00) fL Neut % (Auto) 55.9 (48.0-80.0) % Lymph % (Auto) 36.4 (16.0-40.0) % [place] % (Auto) 6.9 (0.0-15.0) % Eos % (Auto) 0.3 (0.0-7.0) % Baso % (Auto) 0.5 (0.0-1.5) % Neut # (Auto) 3.5 (1.4-5.7) K/uL Lymph # (Auto) 2.3 (0.6-2.4) K/uL [place] # (Auto) 0.4 (0.0-0.8) K/uL Eos # (Auto) 0.0 (0.0-0.7) K/uL Baso # (Auto) 0.0 (0.0-0.1) K/uL Nucleated RBC % 0.0 /100WBC Nucleated RBCs # 0 K/uL Sodium 130 L (136-145) mmol/L Potassium 2.8 L (3.5-5.1) mmol/L Chloride 97 L (98-107) mmol/L Carbon Dioxide 27.2 (21.0-32.0) mmol/L BUN 3 L (7.0-18.0) mg/dL Creatinine 0.5 L (0.6-1.0) mg/dL Est Cr Clr Drug Dosing TNP Estimated GFR (MDRD) > 60.0 ml/min Glucose 85 (74-106) mg/dL Calcium 6.7 L (8.5-10.1) mg/dL Phosphorus 2.0 L (2.6-4.7) mg/dL Magnesium 1.6 L (1.8-2.4) mg/dL Total Bilirubin 0.3 (0.2-1.0) mg/dL AST 26 (15-37) IU/L ALT 31 (14-63) IU/L Alkaline Phosphatase 112 (46-116) U/L Total Protein 3.3 L (6.4-8.2) g/dL Albumin 0.7 L (3.4-5.0) g/dL Globulin 2.6 (2.0-3.5) g/dL Albumin/Globulin Ratio 0.3 L (1.3-2.8) Vitamin B12 2174 H (193-986) pg/mL TSH 3rd Generation 3.53 (0.36-3.74) uIU/mL Urine Color Urine Appearance Urine pH (5.0-8.0) Ur Specific [place] (1.001-1.035) Urine Protein (NEGATIVE) mg/dL Urine Glucose (UA) (NEGATIVE) mg/dL Urine Ketones (NEGATIVE) mg/dL Urine Occult Blood (NEGATIVE) Urine Nitrite (NEGATIVE) Urine Bilirubin (NEGATIVE) Urine Urobilinogen (<2.0) EU/dL Ur Leukocyte Esterase (NEGATIVE) Urine RBC (0-2/HPF) Urine WBC (0-5/HPF) Ur Epithelial Cells (NONE-FEW) Amorphous Sediment (NEGATIVE) Urine Bacteria (NEGATIVE) Urine Mucus (NONE-MOD) Urine HCG, Qual (NEGATIVE) 05/30/18 05/30/18 05/31/18 Range/Units 19:22 19:22 05:05 WBC 6.57 (4.0-11.0) K/uL RBC 3.86 L (4.30-5.90) M/uL Hgb 9.8 L (12.0-16.0) g/dL Hct 30.2 L (36.0-46.0) % MCV 78.2 L (80.0-98.0) fL MCH 25.4 L (27.0-32.0) pg MCHC 32.5 (31.0-37.0) g/dL RDW Std Deviation 52.5 (28.0-62.0) fl RDW Coeff of Alicia 18 H (11.0-15.0) % Plt Count 251 (150-400) K/uL MPV 10.00 (7.40-12.00) fL Neut % (Auto) 43.3 L (48.0-80.0) % Lymph % (Auto) 48.2 H (16.0-40.0) % [place] % (Auto) 6.8 (0.0-15.0) % Eos % (Auto) 0.9 (0.0-7.0) % Baso % (Auto) 0.8 (0.0-1.5) % Neut # (Auto) 2.8 (1.4-5.7) K/uL Lymph # (Auto) 3.2 H (0.6-2.4) K/uL [place] # (Auto) 0.5 (0.0-0.8) K/uL Eos # (Auto) 0.1 (0.0-0.7) K/uL Baso # (Auto) 0.1 (0.0-0.1) K/uL Nucleated RBC % 0.0 /100WBC Nucleated RBCs # 0 K/uL Sodium (136-145) mmol/L Potassium (3.5-5.1) mmol/L Chloride (98-107) mmol/L Carbon Dioxide (21.0-32.0) mmol/L BUN (7.0-18.0) mg/dL Creatinine (0.6-1.0) mg/dL Est Cr Clr Drug Dosing Estimated GFR (MDRD) ml/min Glucose (74-106) mg/dL Calcium (8.5-10.1) mg/dL Phosphorus (2.6-4.7) mg/dL Magnesium (1.8-2.4) mg/dL Total Bilirubin (0.2-1.0) mg/dL AST (15-37) IU/L ALT (14-63) IU/L Alkaline Phosphatase (46-116) U/L Total Protein (6.4-8.2) g/dL Albumin (3.4-5.0) g/dL Globulin (2.0-3.5) g/dL Albumin/Globulin Ratio (1.3-2.8) Vitamin B12 (193-986) pg/mL TSH 3rd Generation (0.36-3.74) uIU/mL Urine Color YELLOW Urine Appearance CLEAR Urine pH 7.5 (5.0-8.0) Ur Specific [place] <= 1.005 (1.001-1.035) Urine Protein NEGATIVE (NEGATIVE) mg/dL Urine Glucose (UA) NEGATIVE (NEGATIVE) mg/dL Urine Ketones NEGATIVE (NEGATIVE) mg/dL Urine Occult Blood NEGATIVE (NEGATIVE) Urine Nitrite NEGATIVE (NEGATIVE) Urine Bilirubin NEGATIVE (NEGATIVE) Urine Urobilinogen 0.2 (<2.0) EU/dL Ur Leukocyte Esterase SMALL (NEGATIVE) Urine RBC 0-2 (0-2/HPF) Urine WBC 3-4 (0-5/HPF) Ur Epithelial Cells OCCASIONAL (NONE-FEW) Amorphous Sediment FEW (NEGATIVE) Urine Bacteria FEW (NEGATIVE) Urine Mucus FEW (NONE-MOD) Urine HCG, Qual NEGATIVE (NEGATIVE) 05/31/18 Range/Units 05:05 WBC (4.0-11.0) K/uL RBC (4.30-5.90) M/uL Hgb (12.0-16.0) g/dL Hct (36.0-46.0) % MCV (80.0-98.0) fL MCH (27.0-32.0) pg MCHC (31.0-37.0) g/dL RDW Std Deviation (28.0-62.0) fl RDW Coeff of Alicia (11.0-15.0) % Plt Count (150-400) K/uL MPV (7.40-12.00) fL Neut % (Auto) (48.0-80.0) % Lymph % (Auto) (16.0-40.0) % [place] % (Auto) (0.0-15.0) % Eos % (Auto) (0.0-7.0) % Baso % (Auto) (0.0-1.5) % Neut # (Auto) (1.4-5.7) K/uL Lymph # (Auto) (0.6-2.4) K/uL [place] # (Auto) (0.0-0.8) K/uL Eos # (Auto) (0.0-0.7) K/uL Baso # (Auto) (0.0-0.1) K/uL Nucleated RBC % /100WBC Nucleated RBCs # K/uL Sodium 134 L (136-145) mmol/L Potassium 3.4 L (3.5-5.1) mmol/L Chloride 102 (98-107) mmol/L Carbon Dioxide 27.6 (21.0-32.0) mmol/L BUN 3 L (7.0-18.0) mg/dL Creatinine 0.5 L (0.6-1.0) mg/dL Est Cr Clr Drug Dosing 132.89 Estimated GFR (MDRD) > 60.0 ml/min Glucose 60 L (74-106) mg/dL Calcium 6.4 L (8.5-10.1) mg/dL Phosphorus 2.7 (2.6-4.7) mg/dL Magnesium 1.6 L (1.8-2.4) mg/dL Total Bilirubin 0.2 (0.2-1.0) mg/dL AST 20 (15-37) IU/L ALT 27 (14-63) IU/L Alkaline Phosphatase 84 (46-116) U/L Total Protein 2.9 L (6.4-8.2) g/dL Albumin 0.9 L (3.4-5.0) g/dL Globulin 2.0 (2.0-3.5) g/dL Albumin/Globulin Ratio 0.5 L (1.3-2.8) Vitamin B12 (193-986) pg/mL TSH 3rd Generation (0.36-3.74) uIU/mL Urine Color Urine Appearance Urine pH (5.0-8.0) Ur Specific [place] (1.001-1.035) Urine Protein (NEGATIVE) mg/dL Urine Glucose (UA) (NEGATIVE) mg/dL Urine Ketones (NEGATIVE) mg/dL Urine Occult Blood (NEGATIVE) Urine Nitrite (NEGATIVE) Urine Bilirubin (NEGATIVE) Urine Urobilinogen (<2.0) EU/dL Ur Leukocyte Esterase (NEGATIVE) Urine RBC (0-2/HPF) Urine WBC (0-5/HPF) Ur Epithelial Cells (NONE-FEW) Amorphous Sediment (NEGATIVE) Urine Bacteria (NEGATIVE) Urine Mucus (NONE-MOD) Urine HCG, Qual (NEGATIVE) Med Orders - Current: Current Medications Acetaminophen (Tylenol) 650 mg PO Q6H PRN PRN Reason: Pain Last Admin: 05/31/18 02:17 Dose: 650 mg Enoxaparin Sodium (Lovenox) 40 mg SUBCUT Q24H [facility] Last Admin: 05/30/18 17:55 Dose: 40 mg Methylprednisolone Sodium Succinate (Solu-Medrol) 20 mg IV Q8HR [facility] Ondansetron HCl (Zofran) 4 mg IVPUSH Q4H PRN PRN Reason: Nausea/Vomiting Last Admin: 05/31/18 02:17 Dose: 4 mg Sodium Chloride (Saline Flush) 10 ml FLUSH ASDIRECTED PRN PRN Reason: Keep Vein Open Last Admin: 05/30/18 16:32 Dose: 10 ml Sodium Chloride (Saline Flush) 2.5 ml FLUSH ASDIRECTED PRN PRN Reason: Keep Vein Open Last Admin: 05/30/18 16:32 Dose: 2.5 ml Discontinued Medications Sodium Chloride (Normal Saline) 1,000 mls @ 999 mls/hr IV .Bolus ONE Stop: 05/30/18 17:12 Last Admin: 05/30/18 16:32 Dose: 999 mls/hr Multivitamins/Minerals 10 ml/Thiamine HCl 100 mg/ Folic Acid 1 mg/ Potassium Chloride 40 meq/ Sodium Chloride 1,031.2 mls @ 250 mls/hr IV ONETIME ONE Stop: 05/30/18 21:00 Last Admin: 05/30/18 17:38 Dose: 250 mls/hr Albumin Human (Flexbumin 25%) 12.5 gm in 50 mls @ 100 mls/hr IV ONETIME ONE Stop: 05/30/18 19:38 Last Admin: 05/30/18 22:44 Dose: 100 mls/hr Magnesium Sulfate 2 gm/ Premix 50 mls @ 50 mls/hr IV ONETIME ONE Stop: 05/31/18 08:19 Ondansetron HCl (Zofran) 4 mg IVPUSH ONETIME ONE Stop: 05/30/18 16:54 Last Admin: 05/30/18 17:29 Dose: 4 mg Potassium Chloride (Klor-Con M20) 40 meq PO Q4HR [facility] Stop: 05/31/18 00:01 Last Admin: 05/30/18 22:54 Dose: Not Given Potassium Chloride (Klor-Con M20) 40 meq PO Q4H [facility] Stop: 05/31/18 06:01 Last Admin: 05/31/18 06:20 Dose: 40 meq Potassium Chloride (Klor-Con M20) 40 meq PO ONETIME ONE Stop: 05/31/18 07:21 Sodium Phosphate (Neutra-Phos) 250 mg PO TID [facility] Last Admin: 05/31/18 06:20 Dose: 250 mg - Exam General: Alert, Oriented, Cooperative Lungs: Clear to Auscultation, Normal Respiratory Effort Cardiovascular: Regular Rate, Regular Rhythm GI/Abdominal Exam: Normal Bowel Sounds, Soft, No Distention, Tender (diffusely) Extremities: Pedal Edema (2+ pitting bilateral up to knees) Skin: Warm, Dry Neurological: No New Focal Deficit Psy/Mental Status: Alert, Normal Affect, Normal Mood - Problem List Review Problem List Initiated/Reviewed/Updated: Yes - My Orders Last 24 Hours: My Active Orders 05/30/18 17:44 Intake and Output Strict [RC] Q12H Vital Signs [RC] PER UNIT ROUTINE Resuscitation Status Stat 05/30/18 17:45 Enoxaparin [Lovenox] 40 mg SUBCUT Q24H 05/31/18 08:04 Echo Comp wo Cont [US] Stat 05/31/18 08:36 CDIFF TOX A+B [OP] Routine CULTURE STOOL + CAMPY+SHIGATOX [RM] Routine WBC, STOOL [OP] Routine 05/31/18 14:00 methylPREDNISolone Sod Succ [Solu-MEDROL] 20 mg IV Q8HR 05/31/18 Breakfast High Protein Diet [DIET] - Plan Plan:: 1.. Failure to thrive- monitor labs, high protein diet, monitor on telemetry. 2. Hypokalemia- improved- will give an additional 40 mEq today. 3. Hypomagnesemia- replace with an additional 2 grams IV 4. Hypophosphatemia- resolved 5. Paresthesias- resolved- vitamin B12 high, TSH normal, vitamin B1 pending. 6. Fluid Retention- will get echo, she was given albumin last night, she is wearing compression stocking. Will give an additional dose of albumin today. 7. Crohn's disease with diarrhea- Per Dr. Tillman's recommendations- will check stool for Cdiff and culture. Will start her on solumedrol 20 mg IV q8. When discharged he would like her on prednisone taper until her appt with him Jun 18. He was her started on 40 mg of prednisone and then taper by 10 mg weekly. He recommends a CT scan if her abdominal pain worsens above baseline or she develops fever. She normally takes oral morphine at home for pain, we will have prn IV morphine available while admitted because she is not tolerating oral dosing at this time.
[2018-05-31] MEDS ORDERED: Albumin 25% 12.5 GM/50 ML BAG IV ONE (10:51)
[2018-05-31] MEDS ORDERED: methylPREDNISolone Sodium Succinate 40 MG/1 ML SDV IVPUSH SCH (14:00)
[2018-05-31] MEDS: Enoxaparin 40 MG/0.4 ML Syringe SUBCUT SCH (18:14)
[2018-05-31] MEDS: Levofloxacin/Dextrose 5%-Water 750 MG in Premix Bag 1 BAG IV SCH (18:15)
[2018-05-31] MEDS: Calcium Carbonate 500 MG Tab.Chew PO PRN (18:40)
[2018-05-31] MEDS: Morphine 2 MG/ML Syringe IVPUSH PRN (19:38)
[2018-05-31] MEDS ORDERED: Melatonin 3 MG Tab PO SCH (21:00)
[2018-05-31] MEDS: Melatonin 3 MG Tab PO SCH (21:47)
[2018-06-01] MEDS: Morphine 2 MG/ML Syringe IVPUSH PRN ×4 (01:58→21:36)
[2018-06-01 05:46] LABS: CHLORIDE,CL 105 mmol/L (98-107); SODIUM,NA 135 mmol/L (136-145)
--- NOTE | 2018-06-01 08:46 | PCM.PN ---
- General Info Date of Service: 06/01/18 Subjective Update: The patient is a 18 year old female with history of Crohns who was originally admitted for failure to thrive with multiple electrolyte abnormalities. Her labs have improved. I did speak to her GI physician in [place] yesterday, who recommended checking her stool for infection and then starting her on steroids for crohns flare. Her stool did come back positive for Campylobacter and she was started on Levaquin. The patient reports she feels much better and is able to tolerate food. She denies any chest pain or shortness of breath. She does endorse abdominal pain but she reports she is at her baseline for that from her Crohns. - Review of Systems General: Reports: No Symptoms HEENT: Reports: No Symptoms Pulmonary: Reports: No Symptoms Cardiovascular: Reports: Edema. Denies: Chest Pain Gastrointestinal: Reports: Abdominal Pain, Diarrhea. Denies: Constipation, Nausea, Vomiting Genitourinary: Reports: No Symptoms Musculoskeletal: Reports: No Symptoms Skin: Reports: No Symptoms Neurological: Reports: No Symptoms Psychiatric: Reports: No Symptoms - Patient Data Vitals - Most Recent: Last Vital Signs Temp 97.9 F 06/01/18 07:45 Pulse 80 06/01/18 07:45 Resp 12 06/01/18 07:45 BP 102/63 06/01/18 07:45 Pulse Ox 100 06/01/18 07:45 Weight - Most Recent: 46.901 kg I&O - Last 24 Hours: Intake & Output 05/31/18 06/01/18 06/01/18 22:59 06:59 14:59 Intake Total 1310 440 Output Total 50 740 Balance 1260 -300 Lab Results Last 24 Hours: Laboratory Results - last 24 hr 06/01/18 06/01/18 Range/Units 04:55 04:55 WBC 5.15 (4.0-11.0) K/uL RBC 3.57 L (4.30-5.90) M/uL Hgb 9.0 L (12.0-16.0) g/dL Hct 28.0 L (36.0-46.0) % MCV 78.4 L (80.0-98.0) fL MCH 25.2 L (27.0-32.0) pg MCHC 32.1 (31.0-37.0) g/dL RDW Std Deviation 53.9 (28.0-62.0) fl RDW Coeff of Alicia 19 H (11.0-15.0) % Plt Count 208 (150-400) K/uL MPV 9.70 (7.40-12.00) fL Neut % (Auto) 32.6 L (48.0-80.0) % Lymph % (Auto) 56.5 H (16.0-40.0) % [place] % (Auto) 9.3 (0.0-15.0) % Eos % (Auto) 1.0 (0.0-7.0) % Baso % (Auto) 0.6 (0.0-1.5) % Neut # (Auto) 1.7 (1.4-5.7) K/uL Lymph # (Auto) 2.9 H (0.6-2.4) K/uL [place] # (Auto) 0.5 (0.0-0.8) K/uL Eos # (Auto) 0.1 (0.0-0.7) K/uL Baso # (Auto) 0.0 (0.0-0.1) K/uL Nucleated RBC % 0.0 /100WBC Nucleated RBCs # 0 K/uL Sodium 135 L (136-145) mmol/L Potassium 3.5 (3.5-5.1) mmol/L Chloride 105 (98-107) mmol/L Carbon Dioxide 25.9 (21.0-32.0) mmol/L BUN 3 L (7.0-18.0) mg/dL Creatinine 0.5 L (0.6-1.0) mg/dL Est Cr Clr Drug Dosing 132.89 mL/min Estimated GFR (MDRD) > 60.0 ml/min Glucose 72 L (74-106) mg/dL Calcium 7.0 L (8.5-10.1) mg/dL Magnesium 2.0 (1.8-2.4) mg/dL Total Bilirubin 0.2 (0.2-1.0) mg/dL AST 15 (15-37) IU/L ALT 26 (14-63) IU/L Alkaline Phosphatase 79 (46-116) U/L Total Protein 3.0 L (6.4-8.2) g/dL Albumin 1.1 L (3.4-5.0) g/dL Globulin 1.9 L (2.0-3.5) g/dL Albumin/Globulin Ratio 0.6 L (1.3-2.8) Fabián Results Last 24 Hours: Microbiology 05/31/18 10:50 Campylobacter Antigen Assay - Final Stool / Feces Positive Campylobacter Ag - Final NEGATIVE FOR SHIGA TOXIN 1 - Final NEGATIVE FOR SHIGA TOXIN 2 05/31/18 10:50 Clostridium difficile Toxin A & B - Final Stool / Feces Negative for C.Diff Toxin/AG Stool for WBCs - Final POSITIVE FOR WBC'S Med Orders - Current: Current Medications Acetaminophen (Tylenol) 650 mg PO Q6H PRN PRN Reason: Pain Last Admin: 05/31/18 22:05 Dose: 650 mg Calcium Carbonate/Glycine (Tums) 500 mg PO Q2HR PRN PRN Reason: Indigestion Last Admin: 05/31/18 18:40 Dose: 500 mg Enoxaparin Sodium (Lovenox) 40 mg SUBCUT Q24H [facility] Last Admin: 05/31/18 18:14 Dose: 40 mg Levofloxacin/Dextrose 750 mg/ (Premix) 150 mls @ 100 mls/hr IV Q24H [facility] Last Admin: 05/31/18 18:15 Dose: 100 mls/hr Melatonin (Melatonin) 9 mg PO BEDTIME [facility] Last Admin: 05/31/18 21:47 Dose: 9 mg Morphine Sulfate (Morphine) 1 mg IVPUSH Q4H PRN PRN Reason: Pain (severe 7-10) Last Admin: 06/01/18 01:58 Dose: 1 mg Ondansetron HCl (Zofran) 4 mg IVPUSH Q4H PRN PRN Reason: Nausea/Vomiting Last Admin: 05/31/18 13:13 Dose: 4 mg Sodium Chloride (Saline Flush) 10 ml FLUSH ASDIRECTED PRN PRN Reason: Keep Vein Open Last Admin: 05/30/18 16:32 Dose: 10 ml Sodium Chloride (Saline Flush) 2.5 ml FLUSH ASDIRECTED PRN PRN Reason: Keep Vein Open Last Admin: 05/30/18 16:32 Dose: 2.5 ml Discontinued Medications Sodium Chloride (Normal Saline) 1,000 mls @ 999 mls/hr IV .Bolus ONE Stop: 05/30/18 17:12 Last Admin: 05/30/18 16:32 Dose: 999 mls/hr Multivitamins/Minerals 10 ml/Thiamine HCl 100 mg/ Folic Acid 1 mg/ Potassium Chloride 40 meq/ Sodium Chloride 1,031.2 mls @ 250 mls/hr IV ONETIME ONE Stop: 05/30/18 21:00 Last Admin: 05/30/18 17:38 Dose: 250 mls/hr Albumin Human (Flexbumin 25%) 12.5 gm in 50 mls @ 100 mls/hr IV ONETIME ONE Stop: 05/30/18 19:38 Last Admin: 05/30/18 22:44 Dose: 100 mls/hr Magnesium Sulfate 2 gm/ Premix 50 mls @ 50 mls/hr IV ONETIME ONE Stop: 05/31/18 08:19 Last Admin: 05/31/18 09:26 Dose: 50 mls/hr Albumin Human (Flexbumin 25%) 12.5 gm in 50 mls @ 100 mls/hr IV ONETIME ONE Stop: 05/31/18 11:20 Last Admin: 05/31/18 12:31 Dose: 100 mls/hr Melatonin (Melatonin) 6 mg PO BEDTIME [facility] Methylprednisolone Sodium Succinate (Solu-Medrol) 20 mg IVPUSH Q8HR [facility] Last Admin: 05/31/18 13:14 Dose: 20 mg Ondansetron HCl (Zofran) 4 mg IVPUSH ONETIME ONE Stop: 05/30/18 16:54 Last Admin: 05/30/18 17:29 Dose: 4 mg Potassium Chloride (Klor-Con M20) 40 meq PO Q4HR [facility] Stop: 05/31/18 00:01 Last Admin: 05/30/18 22:54 Dose: Not Given Potassium Chloride (Klor-Con M20) 40 meq PO Q4H [facility] Stop: 05/31/18 06:01 Last Admin: 05/31/18 06:20 Dose: 40 meq Potassium Chloride (Klor-Con M20) 40 meq PO ONETIME ONE Stop: 05/31/18 07:21 Last Admin: 05/31/18 09:26 Dose: 40 meq Sodium Phosphate (Neutra-Phos) 250 mg PO TID [facility] Last Admin: 05/31/18 06:20 Dose: 250 mg - Exam General: Alert, Oriented, Cooperative, No Acute Distress Lungs: Clear to Auscultation, Normal Respiratory Effort Cardiovascular: Regular Rate, Regular Rhythm GI/Abdominal Exam: Normal Bowel Sounds, Soft, No Distention, Tender (throughout) Extremities: Pedal Edema (+2 pitting edema bilaterally up to knees) Skin: Warm, Dry Neurological: No New Focal Deficit Psy/Mental Status: Alert, Normal Affect, Normal Mood - Problem List Review Problem List Initiated/Reviewed/Updated: Yes - My Orders Last 24 Hours: My Active Orders 05/31/18 08:04 Echo Comp wo Cont [US] Stat 05/31/18 10:50 CULTURE STOOL + CAMPY+SHIGATOX [] Routine Morphine 1 mg IVPUSH Q4H PRN 05/31/18 18:00 Levofloxacin/Dextrose 5%-Water [Levaquin in D5W 750 MG/150 ML] 750 mg Premix Bag 1 bag IV Q24H 05/31/18 18:05 Calcium Carbonate [Tums] 500 mg PO Q2HR PRN 05/31/18 18:06 SCD [Sequential Compression Device] [OM.PC] Routine 05/31/18 21:00 Melatonin 9 mg PO BEDTIME - Plan Plan:: 1.. Failure to thrive- monitor labs, high protein diet, monitor on telemetry. Her appetite is improving. 2. Hypokalemia- resolved 3. Hypomagnesemia- resolved 4. Hypophosphatemia- resolved 5. Paresthesias- resolved- vitamin B12 high, TSH normal, vitamin B1 pending. 6. Fluid Retention- echo done, waiting on read, she has been trying to elevate her legs, use compression stockings, and SCDs. Will give another dose of albumin 7. Crohn's disease with diarrhea, positive for Campylobacter- For her infection , she was started on IV Levaquin. We discontinued the IV steriods for now to treat the infection. Likely discharge home tomorrow on oral Levaquin and prednisone taper.
[2018-06-01] MEDS: Calcium Carbonate 500 MG Tab.Chew PO PRN ×2 (09:46→13:41)
[2018-06-01] MEDS: Ondansetron 4 MG/2 ML SDV IVPUSH PRN ×3 (09:48→21:35)
[2018-06-01] MEDS ORDERED: Albumin 25% 12.5 GM/50 ML BAG IV ONE (11:13)
[2018-06-01] MEDS: Levofloxacin/Dextrose 5%-Water 750 MG in Premix Bag 1 BAG IV SCH (17:04)
[2018-06-01] MEDS: Enoxaparin 40 MG/0.4 ML Syringe SUBCUT SCH (17:04)
--- NOTE | 2018-06-01 18:48 | ECHO ---
The echocardiogram report can be found in this patient's EMR (Electronic Medical Records) in the Reports section. The echocardiogram report has also been scanned into PACS and can be seen there as well. [email or web address]
[2018-06-01] MEDS: Melatonin 3 MG Tab PO SCH (21:36)
[2018-06-02] MEDS: Morphine 2 MG/ML Syringe IVPUSH PRN ×3 (01:43→10:15)
[2018-06-02 07:34] LABS: CHLORIDE,CL 107 mmol/L (98-107); SODIUM,NA 138 mmol/L (136-145)
[2018-06-02] MEDS ORDERED: Potassium Chloride 20 MEQ Tab.ER PO ONE (07:39)
[2018-06-02] MEDS ORDERED: Albumin 25% 12.5 GM/50 ML BAG IV ONE (07:39)
[2018-06-02] MEDS: Ondansetron 4 MG/2 ML SDV IVPUSH PRN (07:52)
--- NOTE | 2018-06-02 09:14 | PCM.PN ---
- General Info Date of Service: 06/02/18 Subjective Update: Patient is a 18 year old female with history of Crohns admitted for failure to thrive and electrolyte abnormalities. The patient was feeling much better yesterday but had some nausea and leg pain this morning. Her echo results came back yesterday and showed EF of 55%, no regional wall motion abnormalities, and trivial pericardial effusion. She still has swelling in her extremities without any improvement since admission. She is being treated for campylobacter infection. No increase in diarrhea. - Review of Systems General: Reports: No Symptoms HEENT: Reports: No Symptoms Pulmonary: Reports: No Symptoms Cardiovascular: Reports: No Symptoms Gastrointestinal: Reports: Abdominal Pain, Diarrhea, Nausea. Denies: Constipation, Vomiting Genitourinary: Reports: No Symptoms Musculoskeletal: Reports: Leg Pain Skin: Reports: No Symptoms Neurological: Reports: No Symptoms Psychiatric: Reports: No Symptoms - Patient Data Vitals - Most Recent: Last Vital Signs Temp 98.4 F 06/02/18 07:00 Pulse 74 06/02/18 07:00 Resp 16 06/02/18 07:00 BP 96/6 L 06/02/18 07:00 Pulse Ox 100 06/02/18 07:00 Weight - Most Recent: 46.901 kg I&O - Last 24 Hours: Intake & Output 06/01/18 06/02/18 06/02/18 22:59 06:59 14:59 Intake Total 627 720 Output Total 580 300 Balance 47 420 Lab Results Last 24 Hours: Laboratory Results - last 24 hr 06/01/18 06/02/18 06/02/18 Range/Units 17:07 06:20 06:20 WBC 4.64 (4.0-11.0) K/uL RBC 3.76 L (4.30-5.90) M/uL Hgb 10.1 L 9.7 L (12.0-16.0) g/dL Hct 31.7 L 30.1 L (36.0-46.0) % MCV 80.1 (80.0-98.0) fL MCH 25.8 L (27.0-32.0) pg MCHC 32.2 (31.0-37.0) g/dL RDW Std Deviation 55.8 (28.0-62.0) fl RDW Coeff of Alicia 19 H (11.0-15.0) % Plt Count 202 (150-400) K/uL MPV 10.10 (7.40-12.00) fL Neut % (Auto) 41.0 L (48.0-80.0) % Lymph % (Auto) 50.0 H (16.0-40.0) % Borden % (Auto) 7.5 (0.0-15.0) % Eos % (Auto) 0.9 (0.0-7.0) % Baso % (Auto) 0.6 (0.0-1.5) % Neut # (Auto) 1.9 (1.4-5.7) K/uL Lymph # (Auto) 2.3 (0.6-2.4) K/uL Borden # (Auto) 0.4 (0.0-0.8) K/uL Eos # (Auto) 0.0 (0.0-0.7) K/uL Baso # (Auto) 0.0 (0.0-0.1) K/uL Nucleated RBC % 0.0 /100WBC Nucleated RBCs # 0 K/uL Sodium 138 (136-145) mmol/L Potassium 3.2 L (3.5-5.1) mmol/L Chloride 107 (98-107) mmol/L Carbon Dioxide 28.4 (21.0-32.0) mmol/L BUN 3 L (7.0-18.0) mg/dL Creatinine 0.4 L (0.6-1.0) mg/dL Est Cr Clr Drug Dosing 166.11 mL/min Estimated GFR (MDRD) > 60.0 ml/min Glucose 68 L (74-106) mg/dL Calcium 7.4 L (8.5-10.1) mg/dL Total Bilirubin 0.2 (0.2-1.0) mg/dL AST 14 L (15-37) IU/L ALT 25 (14-63) IU/L Alkaline Phosphatase 81 (46-116) U/L Total Protein 3.3 L (6.4-8.2) g/dL Albumin 1.3 L (3.4-5.0) g/dL Globulin 2.0 (2.0-3.5) g/dL Albumin/Globulin Ratio 0.7 L (1.3-2.8) Med Orders - Current: Current Medications Acetaminophen (Tylenol) 650 mg PO Q6H PRN PRN Reason: Pain Last Admin: 05/31/18 22:05 Dose: 650 mg Calcium Carbonate/Glycine (Tums) 500 mg PO Q2HR PRN PRN Reason: Indigestion Last Admin: 06/01/18 13:41 Dose: 500 mg Enoxaparin Sodium (Lovenox) 40 mg SUBCUT Q24H [facility] Last Admin: 06/01/18 17:04 Dose: 40 mg Levofloxacin/Dextrose 750 mg/ (Premix) 150 mls @ 100 mls/hr IV Q24H [facility] Melatonin (Melatonin) 9 mg PO BEDTIME [facility] Last Admin: 06/01/18 21:36 Dose: 9 mg Morphine Sulfate (Morphine) 1 mg IVPUSH Q4H PRN PRN Reason: Pain (severe 7-10) Last Admin: 06/02/18 05:46 Dose: 1 mg Ondansetron HCl (Zofran) 4 mg IVPUSH Q4H PRN PRN Reason: Nausea/Vomiting Last Admin: 06/02/18 07:52 Dose: 4 mg Sodium Chloride (Saline Flush) 10 ml FLUSH ASDIRECTED PRN PRN Reason: Keep Vein Open Last Admin: 05/30/18 16:32 Dose: 10 ml Sodium Chloride (Saline Flush) 2.5 ml FLUSH ASDIRECTED PRN PRN Reason: Keep Vein Open Last Admin: 05/30/18 16:32 Dose: 2.5 ml Discontinued Medications Sodium Chloride (Normal Saline) 1,000 mls @ 999 mls/hr IV .Bolus ONE Stop: 05/30/18 17:12 Last Admin: 05/30/18 16:32 Dose: 999 mls/hr Multivitamins/Minerals 10 ml/Thiamine HCl 100 mg/ Folic Acid 1 mg/ Potassium Chloride 40 meq/ Sodium Chloride 1,031.2 mls @ 250 mls/hr IV ONETIME ONE Stop: 05/30/18 21:00 Last Admin: 05/30/18 17:38 Dose: 250 mls/hr Albumin Human (Flexbumin 25%) 12.5 gm in 50 mls @ 100 mls/hr IV ONETIME ONE Stop: 05/30/18 19:38 Last Admin: 05/30/18 22:44 Dose: 100 mls/hr Magnesium Sulfate 2 gm/ Premix 50 mls @ 50 mls/hr IV ONETIME ONE Stop: 05/31/18 08:19 Last Admin: 05/31/18 09:26 Dose: 50 mls/hr Albumin Human (Flexbumin 25%) 12.5 gm in 50 mls @ 100 mls/hr IV ONETIME ONE Stop: 05/31/18 11:20 Last Admin: 05/31/18 12:31 Dose: 100 mls/hr Levofloxacin/Dextrose 750 mg/ (Premix) 150 mls @ 100 mls/hr IV Q24H [facility] Last Admin: 06/01/18 17:04 Dose: 100 mls/hr Albumin Human (Flexbumin 25%) 12.5 gm in 50 mls @ 100 mls/hr IV ONETIME ONE Stop: 06/01/18 11:42 Last Admin: 06/01/18 12:01 Dose: 100 mls/hr Albumin Human (Flexbumin 25%) 12.5 gm in 50 mls @ 100 mls/hr IV ONETIME ONE Stop: 06/02/18 08:08 Last Admin: 06/02/18 08:47 Dose: 100 mls/hr Melatonin (Melatonin) 6 mg PO BEDTIME [facility] Methylprednisolone Sodium Succinate (Solu-Medrol) 20 mg IVPUSH Q8HR [facility] Last Admin: 05/31/18 13:14 Dose: 20 mg Ondansetron HCl (Zofran) 4 mg IVPUSH ONETIME ONE Stop: 05/30/18 16:54 Last Admin: 05/30/18 17:29 Dose: 4 mg Potassium Chloride (Klor-Con M20) 40 meq PO Q4HR [facility] Stop: 05/31/18 00:01 Last Admin: 05/30/18 22:54 Dose: Not Given Potassium Chloride (Klor-Con M20) 40 meq PO Q4H [facility] Stop: 05/31/18 06:01 Last Admin: 05/31/18 06:20 Dose: 40 meq Potassium Chloride (Klor-Con M20) 40 meq PO ONETIME ONE Stop: 05/31/18 07:21 Last Admin: 05/31/18 09:26 Dose: 40 meq Potassium Chloride (Klor-Con M20) 40 meq PO ONETIME ONE Stop: 06/02/18 07:40 Last Admin: 06/02/18 08:04 Dose: 40 meq Sodium Phosphate (Neutra-Phos) 250 mg PO TID [facility] Last Admin: 05/31/18 06:20 Dose: 250 mg - Exam General: Alert, Oriented, Cooperative Lungs: Clear to Auscultation, Normal Respiratory Effort Cardiovascular: Regular Rate, Regular Rhythm GI/Abdominal Exam: Normal Bowel Sounds, Soft, No Distention, Tender (throughout - no more than her baseline pain related to Crohns) Extremities: Pedal Edema (+2 pitting edema bilateral to knees) Skin: Warm, Dry, Intact Neurological: No New Focal Deficit Psy/Mental Status: Alert, Normal Affect, Normal Mood - Problem List Review Problem List Initiated/Reviewed/Updated: Yes - My Orders Last 24 Hours: My Active Orders 06/02/18 12:00 Levofloxacin/Dextrose 5%-Water [Levaquin in D5W 750 MG/150 ML] 750 mg Premix Bag 1 bag IV Q24H - Plan Plan:: 1.. Failure to thrive- monitor labs, high protein diet, monitor on telemetry. Her appetite is improving. 2. Hypokalemia- dropped a little since yesterday. Will give 40 mEq this morning 3. Fluid Retention- echo done- EF 55%, trivial pericadial effusion. she has been trying to elevate her legs, use compression stockings, and SCDs. Will give another dose of albumin this morning. 4. Crohn's disease with diarrhea, positive for Campylobacter- treating with levaquin. Possible discharge home this afternoon, after albumin infusion. Home on PO prednisone taper per recommendations of her GI physician in [place].
[2018-06-02] MEDS ORDERED: Levofloxacin/Dextrose 5%-Water 750 MG in Premix Bag 1 BAG IV SCH (12:00)
--- NOTE | 2018-06-02 12:05 | PCM.DCSUM1 ---
<Judith Stuart - Last Filed: 06/02/18 12:31> Discharge Summary - Hospital Course Free Text/Narrative:: Admission Date: 05/30/18 Discharge Date: 06/02/18 Admission Diagnosis: 1. Failure to thrive 2. Hypokalemia 3. Hypomagnesemia 4. Hypophosphatemia 5. Paresthesias 6. Fluid retention Discharge Diagnosis: 1. Failure to thrive 2. Hypokalemia- improved 3. Hypomagnesemia- resolved 4. Hypophosphatemia- resolved 5. Paresthesias- resolved 6. Fluid retention 7. Crohns diseas with diarrhea and positive Campylobacter infection Procedures: None Consults: phone consult with Dr. Tillman, GI, [facility] Course: The patient is a 18-year-old female with history of Crohn's disease who presented to the ER with whole-body paresthesias, fluid retention and abdominal pain. In the ER. they did initial lab work which showed multiple electrolyte abnormalities, they gave her IV fluids and potassium. She was admitted to the medical floor where her potassium, magnesium and phosphorus were replaced and resolved. On day of discharge, her potassium had dropped again and this was replaced again. By the time the patient had arrived on the floor, her paresthesias had resolved. The patient also complained of fluid retention. She had an ultrasound done at her PCP earlier in the week that showed fluid around her heart, so an echo was done and showed an EF of 55% with trivial pericardial effusion. The patient was treated with albumin daily. Due to her history of Crohn's, we did contact for her GI specialist in [place], [place], who recommended we test her stool for infection and then start her on steroids. We tested her stool, she was positive for Campylobacter was started on Levaquin. She was negative for C. difficile and Shiga. We held the IV steroids at that time, but she will be discharged home on oral steroids per the recommendations of Dr. Tillman. Throughout the admission, she made daily improvements with eating and pain. Disposition: Home Discharge Condition: vitals stable, tolerating oral diet, ambulating without difficulty. Discharge Instructions: regular diet as tolerated, activity as tolerated, continue to use compression stockings and elevate legs, symptoms to report to physician include chest pain, shortness of breath, abdominal pain, fever/chills , swelling, discharge, or nausea/vomiting. Discharge Medications: Home Medications: Vedolizumab [Entyvio] 300 mg INJECT ASDIRECTED Morphine 15 mg PO TID New Medications: Levofloxacin [Levaquin] 750 mg PO ONETIME 1 Days #1 tablet predniSONE [Prednisone] 10 mg PO DAILY 30 Days #70 tablet Follow-up: Dr. Martin, PCP, on 06/07/18 and keep follow up appt with Dr. Tillman GI, in [place] on 06/18/18 Diagnosis: Stroke: No - Discharge Data Discharge Date: 06/02/18 Discharge Disposition: Home, Self-Care 01 Condition: Stable - Patient Instructions Diet: Regular Diet as Tolerated Activity: As Tolerated Driving: May Drive Today Showering/Bathing: May Shower Notify Provider of: Fever, Increased Pain, Swelling and Redness, Drainage, Nausea and/or Vomiting Other/Special Instructions: Additional symptoms- unable to tolerate oral medications or food, chest pain, abdominal pain, shortness of breath. Continue to wear compression stockings and keep legs elevated. - Discharge Plan *PRESCRIPTION DRUG MONITORING PROGRAM REVIEWED*: No *COPY OF PRESCRIPTION DRUG MONITORING REPORT IN PATIENT RUPAL: No Prescriptions/Med Rec: Levofloxacin [Levaquin] 750 mg PO ONETIME 1 Days #1 tablet predniSONE [Prednisone] 10 mg PO DAILY 30 Days #70 tablet Home Medications: Home Meds Vedolizumab [Entyvio] 300 mg INJECT ASDIRECTED 03/28/18 [History] Morphine 15 mg PO TID 05/30/18 [History] Levofloxacin [Levaquin] 750 mg PO ONETIME 1 Days #1 tablet 06/02/18 [Rx] predniSONE [Prednisone] 10 mg PO DAILY 30 Days #70 tablet 06/02/18 [Rx] Patient Handouts: Levofloxacin tablets, Prednisone tablets, Failure to Thrive, Adult, [id number] Referrals: Albert Phelan MD [Physician] - 06/07/18 10:00 am - Patient Data Vitals - Most Recent: Last Vital Signs Temp 98.4 F 06/02/18 07:00 Pulse 74 06/02/18 07:00 Resp 16 06/02/18 07:00 BP 96/6 L 06/02/18 07:00 Pulse Ox 100 06/02/18 07:00 Weight - Most Recent: 46.901 kg I&O - Last 24 hours: Intake & Output 06/01/18 06/02/18 06/02/18 22:59 06:59 14:59 Intake Total 627 720 Output Total 580 300 Balance 47 420 Lab Results - Last 24 hrs: Laboratory Results - last 24 hr 06/01/18 06/02/18 06/02/18 Range/Units 17:07 06:20 06:20 WBC 4.64 (4.0-11.0) K/uL RBC 3.76 L (4.30-5.90) M/uL Hgb 10.1 L 9.7 L (12.0-16.0) g/dL Hct 31.7 L 30.1 L (36.0-46.0) % MCV 80.1 (80.0-98.0) fL MCH 25.8 L (27.0-32.0) pg MCHC 32.2 (31.0-37.0) g/dL RDW Std Deviation 55.8 (28.0-62.0) fl RDW Coeff of Alicia 19 H (11.0-15.0) % Plt Count 202 (150-400) K/uL MPV 10.10 (7.40-12.00) fL Neut % (Auto) 41.0 L (48.0-80.0) % Lymph % (Auto) 50.0 H (16.0-40.0) % Williamson % (Auto) 7.5 (0.0-15.0) % Eos % (Auto) 0.9 (0.0-7.0) % Baso % (Auto) 0.6 (0.0-1.5) % Neut # (Auto) 1.9 (1.4-5.7) K/uL Lymph # (Auto) 2.3 (0.6-2.4) K/uL Williamson # (Auto) 0.4 (0.0-0.8) K/uL Eos # (Auto) 0.0 (0.0-0.7) K/uL Baso # (Auto) 0.0 (0.0-0.1) K/uL Nucleated RBC % 0.0 /100WBC Nucleated RBCs # 0 K/uL Sodium 138 (136-145) mmol/L Potassium 3.2 L (3.5-5.1) mmol/L Chloride 107 (98-107) mmol/L Carbon Dioxide 28.4 (21.0-32.0) mmol/L BUN 3 L (7.0-18.0) mg/dL Creatinine 0.4 L (0.6-1.0) mg/dL Est Cr Clr Drug Dosing 166.11 mL/min Estimated GFR (MDRD) > 60.0 ml/min Glucose 68 L (74-106) mg/dL Calcium 7.4 L (8.5-10.1) mg/dL Total Bilirubin 0.2 (0.2-1.0) mg/dL AST 14 L (15-37) IU/L ALT 25 (14-63) IU/L Alkaline Phosphatase 81 (46-116) U/L Total Protein 3.3 L (6.4-8.2) g/dL Albumin 1.3 L (3.4-5.0) g/dL Globulin 2.0 (2.0-3.5) g/dL Albumin/Globulin Ratio 0.7 L (1.3-2.8) ASHLEY Results - Last 24 hrs: Microbiology 05/31/18 10:50 Stool Culture - Final Stool / Feces NO SALMONELLA, SHIGELLA,OR E.COLI O157 ISOLATED Campylobacter Antigen Assay - Final Positive Campylobacter Ag Shiga Toxin I - Final NEGATIVE FOR SHIGA TOXIN 1 Shiga Toxin II - Final NEGATIVE FOR SHIGA TOXIN 2 Med Orders - Current: Current Medications Acetaminophen (Tylenol) 650 mg PO Q6H PRN PRN Reason: Pain Last Admin: 05/31/18 22:05 Dose: 650 mg Calcium Carbonate/Glycine (Tums) 500 mg PO Q2HR PRN PRN Reason: Indigestion Last Admin: 06/01/18 13:41 Dose: 500 mg Enoxaparin Sodium (Lovenox) 40 mg SUBCUT Q24H [facility] Last Admin: 06/01/18 17:04 Dose: 40 mg Melatonin (Melatonin) 9 mg PO BEDTIME [facility] Last Admin: 06/01/18 21:36 Dose: 9 mg Morphine Sulfate (Morphine) 1 mg IVPUSH Q4H PRN PRN Reason: Pain (severe 7-10) Last Admin: 06/02/18 10:15 Dose: 1 mg Ondansetron HCl (Zofran) 4 mg IVPUSH Q4H PRN PRN Reason: Nausea/Vomiting Last Admin: 06/02/18 07:52 Dose: 4 mg Sodium Chloride (Saline Flush) 10 ml FLUSH ASDIRECTED PRN PRN Reason: Keep Vein Open Last Admin: 05/30/18 16:32 Dose: 10 ml Sodium Chloride (Saline Flush) 2.5 ml FLUSH ASDIRECTED PRN PRN Reason: Keep Vein Open Last Admin: 05/30/18 16:32 Dose: 2.5 ml Discontinued Medications Sodium Chloride (Normal Saline) 1,000 mls @ 999 mls/hr IV .Bolus ONE Stop: 05/30/18 17:12 Last Admin: 05/30/18 16:32 Dose: 999 mls/hr Multivitamins/Minerals 10 ml/Thiamine HCl 100 mg/ Folic Acid 1 mg/ Potassium Chloride 40 meq/ Sodium Chloride 1,031.2 mls @ 250 mls/hr IV ONETIME ONE Stop: 05/30/18 21:00 Last Admin: 05/30/18 17:38 Dose: 250 mls/hr Albumin Human (Flexbumin 25%) 12.5 gm in 50 mls @ 100 mls/hr IV ONETIME ONE Stop: 05/30/18 19:38 Last Admin: 05/30/18 22:44 Dose: 100 mls/hr Magnesium Sulfate 2 gm/ Premix 50 mls @ 50 mls/hr IV ONETIME ONE Stop: 05/31/18 08:19 Last Admin: 05/31/18 09:26 Dose: 50 mls/hr Albumin Human (Flexbumin 25%) 12.5 gm in 50 mls @ 100 mls/hr IV ONETIME ONE Stop: 05/31/18 11:20 Last Admin: 05/31/18 12:31 Dose: 100 mls/hr Levofloxacin/Dextrose 750 mg/ (Premix) 150 mls @ 100 mls/hr IV Q24H [facility] Last Admin: 06/01/18 17:04 Dose: 100 mls/hr Albumin Human (Flexbumin 25%) 12.5 gm in 50 mls @ 100 mls/hr IV ONETIME ONE Stop: 06/01/18 11:42 Last Admin: 06/01/18 12:01 Dose: 100 mls/hr Albumin Human (Flexbumin 25%) 12.5 gm in 50 mls @ 100 mls/hr IV ONETIME ONE Stop: 06/02/18 08:08 Last Admin: 06/02/18 08:47 Dose: 100 mls/hr Levofloxacin/Dextrose 750 mg/ (Premix) 150 mls @ 100 mls/hr IV Q24H [facility] Melatonin (Melatonin) 6 mg PO BEDTIME [facility] Methylprednisolone Sodium Succinate (Solu-Medrol) 20 mg IVPUSH Q8HR [facility] Last Admin: 05/31/18 13:14 Dose: 20 mg Ondansetron HCl (Zofran) 4 mg IVPUSH ONETIME ONE Stop: 05/30/18 16:54 Last Admin: 05/30/18 17:29 Dose: 4 mg Potassium Chloride (Klor-Con M20) 40 meq PO Q4HR [facility] Stop: 05/31/18 00:01 Last Admin: 05/30/18 22:54 Dose: Not Given Potassium Chloride (Klor-Con M20) 40 meq PO Q4H [facility] Stop: 05/31/18 06:01 Last Admin: 05/31/18 06:20 Dose: 40 meq Potassium Chloride (Klor-Con M20) 40 meq PO ONETIME ONE Stop: 05/31/18 07:21 Last Admin: 05/31/18 09:26 Dose: 40 meq Potassium Chloride (Klor-Con M20) 40 meq PO ONETIME ONE Stop: 06/02/18 07:40 Last Admin: 06/02/18 08:04 Dose: 40 meq Sodium Phosphate (Neutra-Phos) 250 mg PO TID [facility] Last Admin: 05/31/18 06:20 Dose: 250 mg <Victor Hugo Farr - Last Filed: 06/02/18 18:59> - Patient Data Vitals - Most Recent: Last Vital Signs Temp 36.9 C 06/02/18 07:00 Pulse 74 06/02/18 07:00 Resp 16 06/02/18 07:00 BP 96/6 L 06/02/18 07:00 Pulse Ox 100 06/02/18 07:00 I&O - Last 24 hours: Intake & Output 06/02/18 06/02/18 06/02/18 06:59 14:59 22:59 Intake Total 720 500 Output Total 300 300 Balance 420 200 Lab Results - Last 24 hrs: Laboratory Results - last 24 hr 06/02/18 06/02/18 Range/Units 06:20 06:20 WBC 4.64 (4.0-11.0) K/uL RBC 3.76 L (4.30-5.90) M/uL Hgb 9.7 L (12.0-16.0) g/dL Hct 30.1 L (36.0-46.0) % MCV 80.1 (80.0-98.0) fL MCH 25.8 L (27.0-32.0) pg MCHC 32.2 (31.0-37.0) g/dL RDW Std Deviation 55.8 (28.0-62.0) fl RDW Coeff of Alicia 19 H (11.0-15.0) % Plt Count 202 (150-400) K/uL MPV 10.10 (7.40-12.00) fL Neut % (Auto) 41.0 L (48.0-80.0) % Lymph % (Auto) 50.0 H (16.0-40.0) % Williamson % (Auto) 7.5 (0.0-15.0) % Eos % (Auto) 0.9 (0.0-7.0) % Baso % (Auto) 0.6 (0.0-1.5) % Neut # (Auto) 1.9 (1.4-5.7) K/uL Lymph # (Auto) 2.3 (0.6-2.4) K/uL Williamson # (Auto) 0.4 (0.0-0.8) K/uL Eos # (Auto) 0.0 (0.0-0.7) K/uL Baso # (Auto) 0.0 (0.0-0.1) K/uL Nucleated RBC % 0.0 /100WBC Nucleated RBCs # 0 K/uL Sodium 138 (136-145) mmol/L Potassium 3.2 L (3.5-5.1) mmol/L Chloride 107 (98-107) mmol/L Carbon Dioxide 28.4 (21.0-32.0) mmol/L BUN 3 L (7.0-18.0) mg/dL Creatinine 0.4 L (0.6-1.0) mg/dL Est Cr Clr Drug Dosing 166.11 mL/min Estimated GFR (MDRD) > 60.0 ml/min Glucose 68 L (74-106) mg/dL Calcium 7.4 L (8.5-10.1) mg/dL Total Bilirubin 0.2 (0.2-1.0) mg/dL AST 14 L (15-37) IU/L ALT 25 (14-63) IU/L Alkaline Phosphatase 81 (46-116) U/L Total Protein 3.3 L (6.4-8.2) g/dL Albumin 1.3 L (3.4-5.0) g/dL Globulin 2.0 (2.0-3.5) g/dL Albumin/Globulin Ratio 0.7 L (1.3-2.8) ASHLEY Results - Last 24 hrs: Microbiology 05/31/18 10:50 Stool Culture - Final Stool / Feces NO SALMONELLA, SHIGELLA,OR E.COLI O157 ISOLATED Campylobacter Antigen Assay - Final Positive Campylobacter Ag Shiga Toxin I - Final NEGATIVE FOR SHIGA TOXIN 1 Shiga Toxin II - Final NEGATIVE FOR SHIGA TOXIN 2 Med Orders - Current: Current Medications Discontinued Medications Acetaminophen (Tylenol) 650 mg PO Q6H PRN PRN Reason: Pain Last Admin: 06/02/18 12:06 Dose: 650 mg Calcium Carbonate/Glycine (Tums) 500 mg PO Q2HR PRN PRN Reason: Indigestion Last Admin: 06/01/18 13:41 Dose: 500 mg Enoxaparin Sodium (Lovenox) 40 mg SUBCUT Q24H [facility] Last Admin: 06/01/18 17:04 Dose: 40 mg Sodium Chloride (Normal Saline) 1,000 mls @ 999 mls/hr IV .Bolus ONE Stop: 05/30/18 17:12 Last Admin: 05/30/18 16:32 Dose: 999 mls/hr Multivitamins/Minerals 10 ml/Thiamine HCl 100 mg/ Folic Acid 1 mg/ Potassium Chloride 40 meq/ Sodium Chloride 1,031.2 mls @ 250 mls/hr IV ONETIME ONE Stop: 05/30/18 21:00 Last Admin: 05/30/18 17:38 Dose: 250 mls/hr Albumin Human (Flexbumin 25%) 12.5 gm in 50 mls @ 100 mls/hr IV ONETIME ONE Stop: 05/30/18 19:38 Last Admin: 05/30/18 22:44 Dose: 100 mls/hr Magnesium Sulfate 2 gm/ Premix 50 mls @ 50 mls/hr IV ONETIME ONE Stop: 05/31/18 08:19 Last Admin: 05/31/18 09:26 Dose: 50 mls/hr Albumin Human (Flexbumin 25%) 12.5 gm in 50 mls @ 100 mls/hr IV ONETIME ONE Stop: 05/31/18 11:20 Last Admin: 05/31/18 12:31 Dose: 100 mls/hr Levofloxacin/Dextrose 750 mg/ (Premix) 150 mls @ 100 mls/hr IV Q24H [facility] Last Admin: 06/01/18 17:04 Dose: 100 mls/hr Albumin Human (Flexbumin 25%) 12.5 gm in 50 mls @ 100 mls/hr IV ONETIME ONE Stop: 06/01/18 11:42 Last Admin: 06/01/18 12:01 Dose: 100 mls/hr Albumin Human (Flexbumin 25%) 12.5 gm in 50 mls @ 100 mls/hr IV ONETIME ONE Stop: 06/02/18 08:08 Last Admin: 06/02/18 08:47 Dose: 100 mls/hr Levofloxacin/Dextrose 750 mg/ (Premix) 150 mls @ 100 mls/hr IV Q24H [facility] Melatonin (Melatonin) 6 mg PO BEDTIME [facility] Melatonin (Melatonin) 9 mg PO BEDTIME [facility] Last Admin: 06/01/18 21:36 Dose: 9 mg Methylprednisolone Sodium Succinate (Solu-Medrol) 20 mg IVPUSH Q8HR [facility] Last Admin: 05/31/18 13:14 Dose: 20 mg Morphine Sulfate (Morphine) 1 mg IVPUSH Q4H PRN PRN Reason: Pain (severe 7-10) Last Admin: 06/02/18 10:15 Dose: 1 mg Ondansetron HCl (Zofran) 4 mg IVPUSH ONETIME ONE Stop: 05/30/18 16:54 Last Admin: 05/30/18 17:29 Dose: 4 mg Ondansetron HCl (Zofran) 4 mg IVPUSH Q4H PRN PRN Reason: Nausea/Vomiting Last Admin: 06/02/18 07:52 Dose: 4 mg Potassium Chloride (Klor-Con M20) 40 meq PO Q4HR [facility] Stop: 05/31/18 00:01 Last Admin: 05/30/18 22:54 Dose: Not Given Potassium Chloride (Klor-Con M20) 40 meq PO Q4H [facility] Stop: 05/31/18 06:01 Last Admin: 05/31/18 06:20 Dose: 40 meq Potassium Chloride (Klor-Con M20) 40 meq PO ONETIME ONE Stop: 05/31/18 07:21 Last Admin: 05/31/18 09:26 Dose: 40 meq Potassium Chloride (Klor-Con M20) 40 meq PO ONETIME ONE Stop: 06/02/18 07:40 Last Admin: 06/02/18 08:04 Dose: 40 meq Sodium Chloride (Saline Flush) 10 ml FLUSH ASDIRECTED PRN PRN Reason: Keep Vein Open Last Admin: 05/30/18 16:32 Dose: 10 ml Sodium Chloride (Saline Flush) 2.5 ml FLUSH ASDIRECTED PRN PRN Reason: Keep Vein Open Last Admin: 05/30/18 16:32 Dose: 2.5 ml Sodium Phosphate (Neutra-Phos) 250 mg PO TID [facility] Last Admin: 05/31/18 06:20 Dose: 250 mg - Free Text/Narrative Note: I have examined the patient. I have discussed findings and treatment plan with the resident. I agree with the assessment and plan in the following resident's note.
[2018-06-02] MEDS: Acetaminophen 325 MG Tab PO PRN (12:06)
== END 2018-06-02 13:30 | disposition home or self-care (01) ==
LOC: MW.ED 16:02 → MW.MS 17:19
PROVIDERS: ADMIT Internal Medicine; ATTEND Internal Medicine
DX: R62.7 Adult failure to thrive (principal); E87.6 Hypokalemia; E83.42 Hypomagnesemia; E83.39 Other disorders of phosphorus metabolism; R20.2 Paresthesia of skin; I31.3 Pericardial effusion (noninflammatory); K50.90 Crohn's disease, unspecified, without complications; A04.5 Campylobacter enteritis; F17.210 Nicotine dependence, cigarettes, uncomplicated; F32.9 Major depressive disorder, single episode, unspecified; F41.9 Anxiety disorder, unspecified
CPT/HCPCS: 36415; 80053; 81001; 81025; 82607; 83630; 83735; 84100; 84425; 84443; 85014; 85018; 85025; 87046; 87324; 87899; 93306; 96361; 96365; 96366; 96367; 96372; 96375; 96376; 99285; A9270; G0378; J1650; J1956; J2270; J2405; J2920; J3411; J3475; J3480; J7040; P9047